=== PATIENT | male | born 1950 | race American Indian/Alaskan Native ===

== ENCOUNTER 2016-12-02 08:53 | Inpatient (IN) | payer BC, MEDICARE ==
--- NOTE | 2016-12-02 09:39 | ED PDOC ---
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 Pt states that he had some discussion brought up about dialysis but that he never went through with it, and he is unaware of his latest lab values. pt also states that he has never had attacks due to his sickle cell trait. pt was schedule for today's cath due to shortness of breath with exertion and weakness that he has been experiencing for 2 weeks. pt denies chest pain, abdominal pain, urinary changes/bowel changes, hematuria, blood in stools, headaches. PMD: Dr. Sumner Uro: Dr. Tucker (Eduin Hammonds) Past Medical History - Provider Review Nursing Documentation Reviewed: Yes - Cardiac Hx Cardiac Disorders: Yes Hx Angina: Yes Hx Hypertension: Yes - Pulmonary Hx Respiratory Disorders: No - Neurological Hx Neurological Disorder: No Hx Paralysis: No - HEENT Hx Cataracts: Yes - Renal Hx Renal Disorder: Yes Hx Dialysis: No Hx Renal Failure: Yes - Endocrine/Metabolic Hx Endocrine Disorders: Yes Hx Diabetes Mellitus Type 2: Yes - Hematological/Oncological Hx Blood Disorders: Yes Hx Anemia: Yes Hx Blood Transfusions: No Hx Sickle Cell Trait: Yes - Integumentary Hx Dermatological Disorder: No - Musculoskeletal/Rheumatological Hx Musculoskeletal Disorders: No - Gastrointestinal Hx Gastrointestinal Disorders: No - Genitourinary/Gynecological Hx Genitourinary Disorders: No - Psychiatric Hx Psychophysiologic Disorder: No Hx Emotional Abuse: No Hx Physical Abuse: No Hx Substance Use: No - Past Surgical History Past Surgical History: Non-Contributing - Surgical History Hx Eye Surgery: Yes Other/Comment: cataracts-both eyes - Anesthesia Hx Anesthesia: Yes Hx Anesthesia Reactions: No Hx Malignant Hyperthermia: No - Suicidal Assessment Feels Threatened In Home Enviroment: No <Eduin Hammonds - Last Filed: 12/02/16 10:43> Family/Social History - Physician Review Nursing Documentation Reviewed: Yes Family/Social History: No Known Family HX Smoking Status: Never Smoked Hx Alcohol Use: No Hx Substance Use: No <Eduin Hammonds - Last Filed: 12/02/16 10:43> Allergies/Home Meds <Eduin Hammonds - Last Filed: 12/02/16 10:43> <Azael Zavalao Felisa - Last Filed: 12/02/16 11:16> Allergies/Adverse Reactions: Allergies No Known Allergies Allergy (Verified 11/30/16 14:01) Home Medications: Home Meds Medication Instructions Recorded Confirmed Amlodipine Bes/Olmesartan Med 1 tab PO DAILY 11/30/16 12/02/16 [Prema 10 mg-40 mg] Sitagliptin Phos/Metformin HCl 1 tab PO DAILY 11/30/16 12/02/16 [Janumet 50-500 mg Tablet] Review of Systems - Physician Review All systems were reviewed & negative as marked: Yes - Review of Systems Constitutional: Fatigue. absent: Fevers Respiratory: SOB Cardiovascular: absent: Chest Pain, Palpitations, Orthopnea Gastrointestinal: absent: Abdominal Pain, Nausea, Vomiting <Eduin Hammonds - Last Filed: 12/02/16 10:43> Physical Exam Vital Signs Reviewed: Yes Appearance: Positive for: Well-Appearing Pain Distress: None Mental Status: Positive for: Alert and Oriented X 3 - Systems Exam Head: Present: Atraumatic, Normocephalic Pupils: Present: PERRL Extroacular Muscles: Present: EOMI Conjunctiva: Present: Other (pale) Mouth: Present: Moist Mucous Membranes Pharnyx: Present: Normal Neck: Present: Normal Range of Motion Respiratory/Chest: Present: Clear to Auscultation, Good Air Exchange. No: Wheezes, Rales, Rhonchi Cardiovascular: Present: Regular Rate and Rhythm, Normal S1, S2 Abdomen: Present: Normal Bowel Sounds. No: Tenderness, Distention Back: Present: Normal Inspection Upper Extremity: Present: Normal Inspection. No: Cyanosis Lower Extremity: Present: Normal Inspection, Edema (1+) Neurological: Present: CN II-XII Intact, Speech Normal Skin: Present: Warm, Dry Psychiatric: Present: Alert, Oriented x 3 <Eduin Hammonds - Last Filed: 12/02/16 10:43> Vital Signs Temp Pulse Resp BP Pulse Ox 12/02/16 11:11 153/69 H 12/02/16 09:03 98.1 F 75 16 181/93 H 100 Medical Decision Making - Critical Care Critical Care Minutes: 30 minutes <Eduin Hammonds - Last Filed: 12/02/16 10:43> <Nnamdi Zavala - Last Filed: 12/02/16 11:16> ED Course and Treatment: 12/02/16 09:48 Impression: 66yo M presenting with symptomatic anemia and CKD vs LYLE Plan: - Reassessment and disposition - EKG - Trop - BNP - UA - cross and match- adminster 2u pRBC - Kayexelate for high K Progress : -Consent for blood was obtained -Dr. Hancock was contacted regarding pt's CKD. suggests dialysis for the patient and tunneled catheter by Dr. Norman Vo. will see patient later. -The possibility of dialysis was discussed with patient, and the idea of a temporary tunneled catheter and a permanent AV fistula is understood. case will be discussed more in depth by specialists with patient. - Dr. Vo was contacted regarding tunneled catheter which will be done later today. 12/02/16 10:28 EKG shows NSR @ 75bpm. T wave abnormality but no peaking or ST segment or interval changes, as read by me 12/02/16 10:38 Creator : Natalie Lowry Dictator : Natalie Lowry Manager Of Photography : Print Binding Worker : Natalie Lowry Approver2 : Report Date : 12/02/2016 10:36:23 My Comment : HISTORY: sob COMPARISON: No prior. FINDINGS: LUNGS: No consolidation PLEURA: No significant pleural effusion identified, no pneumothorax apparent. CARDIOVASCULAR: Mild cardiomegaly. Central pulmonary venous congestion OSSEOUS STRUCTURES: No significant abnormalities. VISUALIZED UPPER ABDOMEN: Normal. OTHER FINDINGS: None. IMPRESSION: Mild cardiomegaly and central pulmonary venous congestion 12/02/16 10:[address] Dee who accepts the patient onto his service ( Eduin Hammonds) 12/02/16 10:10 Patient Seen With Resident: In agreement with resident note which contains more details about the patient. Patient was seen and evaluated with resident. Came up with plan and treatment together. Patient complaints of shortness of breathe on exertion, weakness, and lightheadedness. Ddx: Symptomatic Anemia, Acute renal failure on chronic renal failure Potassium treated with Kayexlate. Blood transfusion ordered. I discussed risks vs benefits with patient and he agreed to blood transfusion. Case discussed with Dr. Vo, whom recommends making sure patient has 2nd IV Line and to be taken for tunneled catheter. Dr. Hancock, webbing tacker, requests Dr. Vo for IR and she will take patient to dialysis pending her evaluation. Patient admitted under Dr. Fredrick Dee who agrees for telemetry. (Nnamdi Zavala) - Lab Interpretations Lab Results: Lab Results 12/02/16 09:47: Blood Type B POSITIVE, Antibody Screen Negative, Crossmatch See Detail, BBK History Checked Patient has bt 12/02/16 09:40: Retic Count 1.04 12/02/16 09:40: Iron 68, TIBC 264, % Saturation 26 12/02/16 09:40: Ferritin Pending, Lactate Dehydrogenase 703 H, Total Creatine Kinase 374 H, CK-MB (CK-2) 2.1, CK-MB (CK-2) % Cancelled, Troponin I 0.06, NT- Pro-B Natriuret Pep 6490 H - RAD Interpretation Radiology Orders: 12/02/16 09:31 CHEST PORTABLE [RAD] Stat 12/02/16 09:47 RENAL ARTERY DUPLEX COMPLETE [US] Urgent - Medication Orders Current Medication Orders: Amlodipine Besylate (Norvasc) 10 mg PO DAILY HARLEEN Last Admin: 12/02/16 11:11 Dose: 10 mg MAR Blood Pressure Document 12/02/16 11:11 RG (Rec: 12/02/16 11:11 [id number]) Blood Pressure Blood Pressure (100/60-150/90) 153/69 Atorvastatin Calcium (Lipitor) 80 mg PO DIN HARLEEN Insulin Human Regular (Humulin R Med) 0 units SC ACHS HARLEEN PRN Reason: Protocol Discontinued Medications Sodium Polystyrene Sulfonate (Kayexalate Susp) 30 gm PO STAT STA Stop: 12/02/16 10:10 Last Admin: 12/02/16 11:10 Dose: 30 gm Disposition/Present on Arrival - Present on Arrival History of DVT/PE: No History of Uncontrolled Diabetes: No Urinary Catheter: No History of Decub. Ulcer: No History Surgical Site Infection Following: None <Eduin Hammonds - Last Filed: 12/02/16 10:43> - Present on Arrival Any Indicators Present on Arrival: No - Disposition Have Diagnosis and Disposition been Completed?: Yes Disposition Time: 09:55 Patient Plan: Admission <Nnamdi Zavala - Last Filed: 12/02/16 11:16> - Disposition Diagnosis: Renal failure (ARF), acute on chronic, Symptomatic anemia, Hyperkalemia Condition: FAIR
[2016-12-02] MEDS ORDERED: Sod Polystyrene Sulf 15 gm/60 ml Susp PO STA (10:09)
[2016-12-02 10:19] LABS: RETIC% 1.04 % (0.5-1.5)
[2016-12-02 10:37] LABS: IRON 68 ug/dL (45-180)
--- NOTE | 2016-12-02 10:38 | RAD ---
HISTORY: sob COMPARISON: No prior. FINDINGS: LUNGS: No consolidation PLEURA: No significant pleural effusion identified, no pneumothorax apparent. CARDIOVASCULAR: Mild cardiomegaly. Central pulmonary venous congestion OSSEOUS STRUCTURES: No significant abnormalities. VISUALIZED UPPER ABDOMEN: Normal. OTHER FINDINGS: None. IMPRESSION: Mild cardiomegaly and central pulmonary venous congestion
[2016-12-02 10:41] LABS: TROPONIN I 0.06 ng/mL
[2016-12-02] MEDS ORDERED: Lidocaine 2% Inj (20ml) ONE (10:43)
[2016-12-02] MEDS ORDERED: Midazolam 2 MG/2 ML VIAL ONE ×2 (10:44→11:36)
--- NOTE | 2016-12-02 13:49 | US ---
PROCEDURE: Bilateral renal artery duplex ultrasound. CLINICAL HISTORY: Renal failure. Evaluate for ischemic nephropathy. . Evaluate for renovascular hypertension. PHYSICIAN(S): Norman Vo M.D. TECHNIQUE: Duplex sonography with color-flow Doppler was used to evaluate the visualized segments of the main renal arteries. The patient was evaluated in a fasting state. Imaging in a supine and decubitus position was performed. Limited evaluation of the arcuate waveforms and resistive indices were performed. FINDINGS: Visualization of the main renal arteries is very limited. The kidneys are normal in size, shape, and location. The renal parenchyma is somewhat echogenic with elevated resistive indices. The right kidney measures 10.2cm in length and the left kidney measures 10.3cm in length. No solid renal masses, abnormal calcifications, or hydronephrosis is seen. The main right renal artery is only visualized in segments from the aorta to the hilum.. The peak systolic velocity in the right main renal artery is 92 cm/sec. This is consistent with a 0 to 49% stenosis in the main right renal artery. The resistive index is elevated The main left renal artery is also only visualized in segments from the aorta to the hilum.. The peak systolic velocity in the main left renal artery is 64cm/sec. This corresponds to a 0 to 49% stenosis in the main left renal artery. The resistive indices are elevated. IMPRESSION: 1. The main renal arteries are not well visualized. 2. No sonographically significant stenosis is identified. 3. The kidneys are normal and symmetric in size. There are no solid renal masses, abnormal calcifications or hydronephrosis noted. Renal parenchyma is somewhat echogenic with elevated resistive indices.
[2016-12-02] MEDS ORDERED: Darbepoetin Alfa 100 mcg/ml Inj IVP ONE (14:16)
[2016-12-02] MEDS ORDERED: Iron Sucrose 100 mg/5 ml Inj IVP ONE (14:17)
[2016-12-02 15:04] LABS: BASO # 0.02 K/mm3 (0.0-2.0); BASO % 0.4 % (0.0-3.0); EOS # 0.1 (0.0-0.7); EOS % 2.4 % (1.5-5.0); GRAN # 3.14 (1.4-6.5); GRAN % 64.2 % (50.0-68.0); LYMPH # 1.1 (1.2-3.4); LYMPH % 22.2 % (22.0-35.0); MEAN CELL VOLUME 77.6 fl (80.0-105.0); MEAN CORPUSCULAR HEMOGLOBIN 25.7 pg (25.0-35.0); MEAN CORPUSCULAR HGB CONC 33.2 g/dl (31.0-37.0); MEAN PLATELET VOLUME 9.2 fl (7.0-11.0); MONO # 0.5 (0.1-0.6); MONO % 10.8 % (1.0-6.0); RED CELL DISTRIBUTION WIDTH 14.2 % (11.5-14.5); WHITE BLOOD COUNT 4.9 10^3/ul (4.5-11.0)
[2016-12-02 15:12] LABS: HEMATOCRIT 20.8 % (42.0-52.0)
[2016-12-02 15:13] LABS: ALB/GLOB RATIO 1.2 (1.1-1.8); BILIRUBIN,TOTAL 0.4 mg/dL (0.2-1.3); CALCIUM 8.3 mg/dL (8.4-10.5); MAGNESIUM 3.2 mg/dL (1.7-2.2); PHOSPHOROUS 6.9 mg/dL (2.5-4.5); POTASSIUM 5.1 mmol/L (3.6-5.0); TOTAL PROTEIN 6.5 g/dL (5.8-8.3); URIC ACID 7.8 mg/dL (3.5-8.5)
[2016-12-02] MEDS ORDERED: Iron Sucrose 100 mg/5 ml Inj ONE (15:30)
[2016-12-02] MEDS: Insulin Reg-MEDIUM-Coverage SC SCH ×3 (17:01→22:30)
[2016-12-02] MEDS: Oxycodone/Acetaminophen 5/325 mg Tab PO PRN (17:29)
--- NOTE | 2016-12-02 17:47 | VASCULAR ---
PROCEDURE: Ultrasound and fluoroscopic tunneled right IJ dialysis catheter. CLINICAL HISTORY: ESRD PHYSICIAN(S): Norman Vo M.D. TECHNIQUE: The relative risks and indications for the procedure were explained to the patient and informed written consent obtained. The patient was placed supine on the arteriography table and the right neck/chest was prepped and draped in the usual sterile fashion. 1% Xylocaine was used to anesthetize the skin and soft tissues at the puncture site. Conscious sedation and monitoring were provided throughout the procedure by a nurse. Under direct ultrasound guidance, the rightinternal jugular vein was punctured with a micropuncture set. A 0.035 Glidewire was advanced into the IVC. Sequential dilatation was performed with subsequent placement of a 28cm [place] II catheter with its tip in the right atrium. A retrograde tunnel below the right clavicle was performed. The catheter was trimmed and the hub attached. Both ports aspirate and inject easily. The catheter was secured and a dressing applied. The patient tolerated the procedure well. IMPRESSION: 1. Ultrasound and fluoroscopically placed right IJ tunneled dialysis catheter.
--- NOTE | 2016-12-02 18:09 | CON ---
DATE: 12/02/2016 HISTORY OF PRESENT ILLNESS: The patient is a 66-year-old male who was sent here from Dr. Dee's office because of ongoing dyspnea and chest pain. He was scheduled for cardiac catheterization. However, his preliminary labs revealed a hemoglobin of 6.9 as well as a creatinine of greater than 9. PAST MEDICAL HISTORY: Includes diabetes mellitus, hypertension, chronic renal disease as well as sickle cell trait. No previous cardiac history is noted. He denies chest pain at this time but admits to marked exertional shortness of breath and weakness. Because of this, he was transferred to the emergency room for continued evaluation and care. SOCIAL HISTORY: Denies smoking. REVIEW OF SYSTEMS: A 14-point review of systems was reviewed. His predominant symptoms are exertional dyspnea. PHYSICAL EXAMINATION: VITAL SIGNS: Blood pressure 181/93, heart rate in the 70s. NECK: Negative JVD. LUNGS: Without rales. HEART: S1 and S2 with 2/6 systolic ejection murmur. EXTREMITIES: Without edema. EKG shows nonspecific ST-T changes. Hemoglobin is 6.8. Chemistries: BUN and creatinine is 90 and 11.9. IMPRESSION: 1. End-stage renal disease. 2. Dyspnea. 3. Marked anemia. 4. Diabetes mellitus. 5. Hypertension. 6. History of sickle cell trait. PLAN: Given these findings, we will obtain an echocardiogram to evaluate his LV function. He will require packed red blood cells. Renal consultation have been ordered. Norman Marie MD
--- NOTE | 2016-12-02 19:04 | HP ---
HISTORY OF PRESENT ILLNESS: The patient is a 66 year old man with past medical history of hypertension, hyperlipidemia, non-insulin diabetes mellitus, CKD stage IV-V and anemia of chronic disease who presented to [facility] ED for evaluation of a several day history of progressively worsening dyspnea with exertion and fatigue. The patient was seen in his PMD's office 3 days ago for complaint of substernal chest discomfort (worse with exertion) associated with increased exercise intolerance and dyspnea. At that time, arrangement were made with Dr. Marie for further evaluation with cardiac catheterization. Routine lab studies obtained prior to his catheterization demonstrated a hemoglobin of 6.8 and a creatinine of 11. Given his renal dysfunction he was advised that he would be unlikely to tolerate an IV contrast load during the planned cardiac catheterization and was advised to go to the ED for evaluation and management of severe anemia, metabolic acidosis and renal failure. Upon arrival to the ED he was noted to be afebrile and hemodynamically stable. He was evaluated by Dr. Norman Vo of IR and underwent placement of dialysis access catheter. He was then admitted to the telemetry rhodes for continued management. PAST MEDICAL HISTORY: As per HPI, also sickle cell trait, BPH. PAST SURGICAL HISTORY: None. ALLERGIES: NKDA. MEDICATIONS: Janumet 50/500 mg 1 tablet p.o. daily, Amlodipine/Olmesartan 10/ 40 mg one tablet daily, Lipitor 80 mg p.o. daily and Ambien 5 mg p.o. at bedtime. FAMILY HISTORY: Noncontributory. SOCIAL HISTORY: The patient denies any toxic habits. He has a remote smoking history. REVIEW OF SYSTEMS: A 14-point review of systems is negative except as per HPI. PHYSICAL EXAMINATION: VITAL SIGNS: Temperature 98.1, pulse 75, blood pressure 153/69, respiratory rate 16, oxygen saturation 100% on room air. GENERAL: In no apparent distress. HEENT: Normocephalic, atraumatic. PERRL. EOMI. No scleral icterus. Mild conjunctival pallor is noted. NECK: No JVD. No bruits. LUNGS: Decreased breath sounds at the bases. CARDIOVASCULAR: Regular rate and rhythm. Normal S1 and S2. ABDOMEN: Normoactive bowel sounds. Soft, nontender, nondistended. EXTREMITIES: Trace lower extremity edema bilaterally. NEUROLOGIC: Awake, alert and oriented x3. No focal motor deficit. LABORATORY DATA: Laboratory studies are pending. IMAGING STUDIES: 1. Chest x-ray demonstrates mild cardiomegaly with central pulmonary venous congestion. 2. Renal artery ultrasound is pending. ASSESSMENT: The patient is a 66 year old man with past medical history of hypertension, NIDDM, hyperlipidemia, CKD Stage IV-V, anemia of chronic disease and sickle cell trait who presented for evaluation of a several day history of worsening exertional dyspnea and increasing fatigability and was subsequently admitted to the telemetry rhodes for continued workup and management of ESRD and severe, symptomatic anemia. PLAN: 1. Anemia of chronic disease, symptomatic. Laboratory studies obtained prior to cardiac catheterization demonstrated hemoglobin of 6. Of note, the patient had outpatient laboratory studies on 11/12/2016 that demonstrated a hemoglobin of 7.3 (baseline 9-10 as per outpatient labs dating back to 05/2015). The patient has been typed and cross matched and scheduled for transfusion of 3 units of PRBCs. We will obtain iron studies, reticulocyte count and EPO level. We will also check stool for occult blood. Continue to monitor CBC daily. 2. ESRD. The patient's was referred to Dr. Tucker (purchasing coordinator) in 08/2015 when outpatient labs demonstrated a BUN 56, Cr 4.8 but reportedly has not maintained follow-up since the possibility for eventual dialysis was raised. We will consult Dr. Beavers of Nephrology. We will order a renal artery ultrasound. We will check vitamin D level and intact PTH as well as uric acid level. Dr. Norman Vo has been consulted and the patient is s/p placement of dialysis catheter. 3. Angina. The patient was scheduled for cardiac catheterization with Dr. Marie however due to his underlying renal dysfunction, IV contrast was contraindicated. Based on the patient's labs it is likely that his symptoms may be secondary to symptomatic anemia. Dr. Marie has been consulted for further evaluation and recommendations. 4. CHF. Laboratory studies on admission demonstrate an elevated BNP of 6490 and CXR demonstrates pulmonary venous congestion. A TTE has been ordered to assess LV function and evaluate for wall motion abnormalities. 5. Hypertension. Blood pressure controlled. Continue with Norvasc 10 mg p.o. daily. We will hold ACEi and ARB's given the patient's renal dysfunction while his renal workup is pending. 6. Hyperlipidemia. Continue with Lipitor 80 mg p.o. daily. 7. NIDDM, well controlled with most recent A1c of 5.9. Continue with medium dose ISS and monitoring finger sticks q. a.c. and at bedtime. 8. BPH. 9. Metabolic acidosis. The patient will be started on HD and may require placement on sodium bicarbonate. Will monitor daily CMP. 10. Prophylaxis. GI prophylaxis is not indicated as patient is eating. DVT prophylaxis is not indicated, as patient is ambulatory. CODE STATUS: Full code. Fredrick Dee MD MTDD
[2016-12-02 20:14] VITALS: BMI 27.3
--- NOTE | 2016-12-02 21:03 | CON ---
DATE: 12/02/2016 REASON FOR CONSULTATION: Advanced chronic kidney disease, hyperkalemia, shortness of breath, severe anemia. HISTORY OF PRESENTING ILLNESS: A 66-year-old male previously unknown to me, was initially admitted to same-day surgery for cardiac cath because of symptoms of dyspnea on exertion, some chest tightness. Pre-procedure workup showed elevated BUN of 90, creatinine of 11.2. Potassium of 5.4. Hemoglobin of 7. On questioning the patient reports that, he follows up with another manager language. He was advised to start renal replacement therapy 1 year ago. He did not go back for his follow-up visits. He gives a history of NIDDM, hypertension for many years. He also has hyperlipidemia. He denies any knowledge of any CAD. Procedure was canceled because of advanced chronic kidney disease. Currently, he reports dyspnea on exertion, some chest pressure. He denies any headaches, dizziness. He denies any nausea, vomiting. He denies any abdominal pain. He denies any changes in his urine output. PAST MEDICAL AND SURGICAL HISTORY: NIDDM for 20 years, hypertension for 10+ years, hyperlipidemia, chronic anemia, sickle cell trait. FAMILY HISTORY: Noncontributory. SOCIAL HISTORY: No smoking, no alcohol use, no IV drug abuse. ALLERGIES: NO KNOWN DRUG ALLERGIES. MEDICATIONS AT HOME: Prema 1040, Janumet 50/500. REVIEW OF SYSTEMS: All systems are reviewed, pertinent positives as mentioned in the history of presenting illness, rest unremarkable. PHYSICAL EXAMINATION: GENERAL EXAMINATION: Thinly built, elderly male lying in bed. VITAL SIGNS: Blood pressure 181/93, heart rate 84, respiratory rate 18, temperature 98.2. HEENT: Normocephalic, atraumatic, positive pallor. NECK: Supple, no JVD. LUNGS: Bilateral equal air entry, bilateral equal expansion, no rales. CARDIAC: S1 and S2, regular rate and rhythm, no murmur, no rub. ABDOMEN: Soft, nondistended, nontender, bowel sounds present. EXTREMITIES: 1+ pitting edema of the lower extremities. INTAKE AND OUTPUT: Not charted. LABORATORY DATA: WBC 5.1, hemoglobin 6.8, hematocrit 20.9, platelets 173. Sodium 144, potassium 5.4, chloride 112, CO2 17, BUN 90, creatinine 11.9, glucose 137, calcium 8.5, iron 68, iron saturation 26%, ferritin pending. Cholesterol 239, LDL 108, INR 0.9. ASSESSMENT: 1. Advanced chronic kidney disease, stage V. 2. Hyperkalemia. 3. Anion gap metabolic acidosis. 4. Non-insulin dependent diabetes mellitus. 5. Severe hypertension. 6. Severe anemia. 7. Suspect secondary hyperparathyroidism. PLAN: 1. Discontinue Janumet, the patient should not be on metformin with advanced chronic kidney disease. 2. Okay to continue Prema. 3. Urgent dialysis. 4. Aranesp and Venofer on dialysis. 5. Check phosphorus and intact PTH. 6. Will need chronic dialysis. 7. Discussed all options of renal replacement therapy with the patient at length at bedside. Arielle Hancock MD
--- NOTE | 2016-12-02 21:28 | CARD ---
APPROVED REPORT EKG Measurement Heart [id number] <Conclusion> Normal sinus rhythm T wave abnormality, consider lateral ischemia Abnormal ECG
[2016-12-03 05:51] LABS: BASO # 0.02 K/mm3 (0.0-2.0); BASO % 0.4 % (0.0-3.0); EOS # 0.1 (0.0-0.7); EOS % 1.4 % (1.5-5.0); GRAN # 3.41 (1.4-6.5); GRAN % 68.4 % (50.0-68.0); LYMPH # 1.1 (1.2-3.4); LYMPH % 21.2 % (22.0-35.0); MEAN CELL VOLUME 78.1 fl (80.0-105.0); MEAN CORPUSCULAR HEMOGLOBIN 25.8 pg (25.0-35.0); MONO # 0.4 (0.1-0.6); MONO % 8.6 % (1.0-6.0)
[2016-12-03 06:20] LABS: ALB/GLOB RATIO 1.1 (1.1-1.8); BILIRUBIN,TOTAL 0.4 mg/dL (0.2-1.3); CALCIUM 7.5 mg/dL (8.4-10.5); POTASSIUM 4.3 mmol/L (3.6-5.0)
[2016-12-03] MEDS: Insulin Reg-MEDIUM-Coverage SC SCH ×4 (07:30→22:49)
--- NOTE | 2016-12-03 10:18 | PN ---
DATE: 12/03/2016 SUBJECTIVE: The patient is asymptomatic. OBJECTIVE: VITAL SIGNS: Blood pressure 173/87, heart rate in the 70s. NECK: Negative JVD. LUNGS: Without rales. HEART: S1, S2. EXTREMITIES: Without edema. LABORATORY DATA: The potassium is 4.3, hemoglobin is 6.6. IMPRESSION: 1. End-stage renal disease. 2. Marked anemia. 3. High probability for coronary artery disease. 4. Diabetes mellitus. 5. Hypertension. PLAN: Given these findings, the patient is for dialysis today. The patient should receive packed red blood cells today during dialysis. Orders have been put in. Norman Marie MD
--- NOTE | 2016-12-03 11:52 | PN ---
SUBJECTIVE: The patient was seen and examined at bedside on the dialysis rhodes. No acute events overnight. He remains afebrile and hemodynamically stable. The patient is s/p placement of dialysis access catheter with Dr. Norman Vo and he has been evaluated by Dr. Hancock of Nephrology and started on hemodialysis. This morning the patient states he feels okay and has many questions regarding dialysis, but otherwise offers no complaints. PHYSICAL EXAMINATION: VITAL SIGNS: Temperature 99.4, pulse 74, blood pressure 173/87, respiratory rate 19, and oxygen saturation 95% on room air. GENERAL: No apparent distress. HEENT: PERRL. EOMI. No scleral icterus. Mild conjunctival pallor is noted. NECK: No JVD. No bruits. LUNGS: Clear to auscultation. CARDIOVASCULAR: Regular rate and rhythm. Normal S1 and S2. ABDOMEN: Normoactive bowel sounds. Soft, nontender, and nondistended. EXTREMITIES: Trace lower extremity edema bilaterally. NEUROLOGIC: Awake, alert and oriented x3. No focal motor deficits. LABORATORY DATA: WBC 5 with 68% neutrophils, hemoglobin 6.6, hematocrit 20, and platelets 160. MCV 78. Sodium 143, potassium 4.3, chloride 107, bicarbonate 26, BUN 61, creatinine 8.9 , and glucose 144. IMAGING STUDIES: Renal artery ultrasound demonstrates no sonographically significant stenosis, although is a poor study with suboptimal visualization. ASSESSMENT: The patient is a 66 year old man with past medical history of hypertension, NIDDM, hyperlipidemia, CKD Stage IV-V, anemia of chronic disease and sickle cell trait who presented for evaluation of worsening exertional dyspnea and increasing fatigability and who was admitted to the telemetry rhodes for continued workup and management of ESRD and severe symptomatic anemia. PLAN: 1. Anemia of chronic disease, symptomatic. The patient was scheduled for transfusion upon admission however given the need to place dialysis access catheter to initiate hemodialysis, the patient never received his blood transfusions. We will transfuse 2 units of PRBCs. Continue with Venofer as per Dr. Hancock. Continue to monitor CBC daily. 2. ESRD. Input from Dr Hancock noted and greatly appreciated. The patient has been started on hemodialysis and laboratory studies demonstrate resolution of his multiple electrolyte derangements. 3. Angina. Input from Dr. Marie noted and appreciated. A TTE is ordered and pending. We will reassess the patient's symptoms once he has been transfused, as this may be contributing to his exertional dyspnea and chest discomfort. 4. Questionable CHF. As above input from Dr. Marie noted and appreciated. We will await results of the TTE to assess LV function and evaluate for wall motion abnormalities. 5. Hypertension. Blood pressure is slightly elevated. Continue with Norvasc 10 mg p.o. daily and clonidine 0.1 mg p.o. q.8 hours. We will continue to monitor hemodynamics over the following 24 hours and adjust antihypertensives as needed. 6. Hyperlipidemia. Continue with Lipitor 80 mg p.o. daily. 7. NIDDM, well controlled. Laboratory studies on admission demonstrate a hemoglobin of 6.3. Continue with medium dose ISS and monitoring finger sticks before meals and at bedtime. 8. Metabolic acidosis, resolved. Input from Dr. Hancock noted and appreciated. Continue with renal replacement therapy. 9. BPH. 10. Prophylaxis. GI prophylaxis not indicated as the patient is eating. DVT prophylaxis not indicated as the patient is ambulatory. CODE STATUS: Full code. Fredrick Dee MD S[facility]INO
[2016-12-04 06:07] LABS: BASO # 0.02 K/mm3 (0.0-2.0); BASO % 0.3 % (0.0-3.0); EOS # 0.1 (0.0-0.7); EOS % 1.8 % (1.5-5.0); GRAN # 4.89 (1.4-6.5); GRAN % 67.6 % (50.0-68.0); HEMATOCRIT 27.1 % (42.0-52.0); LYMPH # 1.3 (1.2-3.4); LYMPH % 17.4 % (22.0-35.0); MEAN CELL VOLUME 79.9 fl (80.0-105.0); MEAN CORPUSCULAR HGB CONC 32.5 g/dl (31.0-37.0); MEAN PLATELET VOLUME 9.7 fl (7.0-11.0); MONO # 0.9 (0.1-0.6); MONO % 12.9 % (1.0-6.0); RED CELL DISTRIBUTION WIDTH 14.4 % (11.5-14.5); WHITE BLOOD COUNT 7.2 10^3/ul (4.5-11.0)
[2016-12-04 06:18] LABS: ALB/GLOB RATIO 1.2 (1.1-1.8); BILIRUBIN,TOTAL 0.8 mg/dL (0.2-1.3); CALCIUM 7.5 mg/dL (8.4-10.5); POTASSIUM 4.2 mmol/L (3.6-5.0); TOTAL PROTEIN 6.2 g/dL (5.8-8.3)
--- NOTE | 2016-12-04 06:45 | PN ---
DATE: 12/03/2016 SUBJECTIVE: The patient is seen lying in bed. He is awake. He is alert. He is comfortable. He denies any pain. He denies any shortness of breath. OBJECTIVE: GENERAL: Elderly male lying in bed. VITAL SIGNS: Blood pressure 154/93, heart rate is 58, respiratory rate 18, and temperature 98.7. HEENT: Normocephalic, atraumatic. NECK: Supple. No JVD. LUNGS: Bilateral equal air entry, bilateral equal expansion, no rales. CARDIAC: S1 and S2, regular rate and rhythm, no murmur, no rub. ABDOMEN: Obese, soft, nontender, bowel sounds present. EXTREMITIES: No lower extremity edema. INTAKE AND OUTPUT: Not charted. LABORATORY DATA: WBC 5.0, hemoglobin 6.6, hematocrit 20, and platelets 160. Sodium 143, potassium 5.3, chloride 107, CO2 of 26, BUN 61, creatinine 8.9, and glucose 144. A1c 6.3. Calcium 7.5. Iron saturation 26, iron 68, ferritin 89.8. CURRENT MEDICATIONS: Catapres 0.1 q. 8 p.r.n., insulin, , Lipitor q.d., amlodipine 10, Rocaltrol, Tylenol, Zofran. ASSESSMENT: 1. Advanced chronic kidney disease, end-stage renal disease. 2. Severe anemia. 3. Non-insulin dependant diabetes mellitus, hypertension. 4. Secondary hyperparathyroidism. 5. Hyperphosphatemia. 6. Demand ischemia? PLAN: 1. The patient received second dialysis treatment early this morning. 2. Two units of blood had been ordered by PMD. 3. The patient is already receiving Venofer on dialysis. 4. Continue Aranesp with dialysis. 5. We will dialyze again tomorrow. 6. The patient and family to be deciding regarding outpatient dialysis . 7. Long discussion with the patient, , and daughter regarding different options for chronic renal replacement therapy. More than 35 minutes was spent in discussing all the options with the patient and the family. Past medical and surgical history, family history, and social history are all reviewed and unchanged. Arielle Hancock MD
[2016-12-04] MEDS: Insulin Reg-MEDIUM-Coverage SC SCH ×4 (07:56→22:30)
--- NOTE | 2016-12-04 14:05 | PN ---
DATE: LOCATION: The patient is currently in room 267, bed 1. SUBJECTIVE: He has no specific complaints. They have been no acute events overnight. PHYSICAL EXAMINATION: VITAL SIGNS: Temperature 98.7, pulse rate of 68, blood pressure 167/82, respiratory rate of 20 with an O2 saturation of 98% on room air. HEENT: PERRLA. EOMI. There is no icterus present. NECK: Supple with full range of motion. No bruits are appreciated. LUNGS: Clear to auscultation and percussion bilaterally. HEART: Regular rate and rhythm. No murmurs, rubs or gallops. ABDOMEN: Soft, nontender. Bowel sounds are normoactive. There is an access site for hemodialysis in the right upper chest. EXTREMITIES: Show no deformities or edema. NEUROLOGIC: There are no focal motor deficits. LABORATORY DATA: At this time show WBC 7.2, hemoglobin and hematocrit are 8.8 and 27.1. Chemistry, BUN is down to 39, creatinine is down to 6.5, it was 12.1 at one point. Random glucose is 151. Alkaline phosphatase of 172. Total protein, albumin and globulin are all normal. Hepatitis labs are normal. ASSESSMENT AND PLAN: At this point, we will continue to monitor hemoglobin and hematocrit. We will continue dialysis and schedule the patient for an arteriovenous shunt. Parth Dee MD
--- NOTE | 2016-12-04 14:41 | CARD ---
APPROVED REPORT EXAM: Two-dimensional and M-mode echocardiogram with Doppler and color Doppler. INDICATION Dyspnea 2D DIMENSIONS Left Atrium (2D)6.3 (1.6-4.0cm)IVSd1.9 (0.7-1.1cm) LVDd5.0 (3.9-5.9cm)PWd1.6 (0.7-1.1cm) LVDs3.2 (2.5-4.0cm)FS (%) 35.6 % LVEF (%)64.7 (>50%) M-Mode DIMENSIONS Aortic Root4.00 (2.2-3.7cm)Aortic Cusp Exc.1.70 (1.5-2.0cm) Aortic Valve AoV Peak Lxntkngu394.0cm/Suki Peak GR.19mmHg Mitral Valve MV E Asvawvfa71.9cm/sMV A Xmkwzptr082.0cm/sE/A ratio0.6 TDI Lateral E' Peak V5.26cm/sMedial E' Peak V6.14cm/sE/Lateral E'17.5 E/Medial E'15.0 Pulmonary Valve PV Peak Otadpqyp454.0cm/sPV Peak Grad.4mmHg Tricuspid Valve TR Peak Luksaudp027mf/sRAP [id number] Peak Gr.21mmHg [id number] LEFT VENTRICLE There is mild concentric left ventricular hypertrophy. The left ventricular function is normal. The left ventricular ejection fraction is within the normal range. RIGHT VENTRICLE The right ventricle is normal size. ATRIA The left atrium is mildly dilated. The right atrium size is normal. AORTIC VALVE The aortic valve is thickened but opens well. MITRAL VALVE The mitral valve is thickened but opens well. Mitral annular calcification is mild. Mitral regurgitation is mild. TRICUSPID VALVE The tricuspid valve leaflets are thickened , but open well. There is mild tricuspid regurgitation. There is no pulmonary hypertension. PULMONIC VALVE The pulmonic valve is mildly thickened. PERICARDIAL EFFUSION There is no pericardial effusion. <Conclusion> LVH with good LV function Dilated LA Mild MR Mild TR No pulmonary hypertension
[2016-12-04] MEDS ORDERED: Doxercalciferol 4 mcg/2 ml Inj IV ONE (14:44)
[2016-12-04] MEDS ORDERED: Ergocalciferol 50,000 Intl Units Cap PO SCH (14:45)
--- NOTE | 2016-12-04 15:16 | PN ---
DATE: 12/04/2016 CARDIOLOGY FOLLOWUP SUBJECTIVE: The patient is much more comfortable after dialysis. PHYSICAL EXAMINATION: VITAL SIGNS: Blood pressure is 148/93, heart rate in the 60s. NECK: Negative JVD. LUNGS: Without rales. HEART: S1 and S2. EXTREMITIES: Without edema. LABORATORY DATA: Hemoglobin is 8.8. Chemistries: BUN and creatinine 39 and 6.5 with a potassium of 4.2. IMPRESSION: 1. End-stage renal disease. 2. Currently being treated with dialysis. 3. Abnormal stress test with high probability for coronary artery disease. 4. Diabetes mellitus. 5. Hypertension. PLAN: Given these findings, now that the patient is on dialysis and his hemoglobin remained stable, we will schedule the patient for cardiac catheterization on Wednesday. Norman Marie MD
[2016-12-05 07:41] LABS: BASO # 0.02 K/mm3 (0.0-2.0); BASO % 0.3 % (0.0-3.0); EOS # 0.1 (0.0-0.7); EOS % 1.1 % (1.5-5.0); GRAN % 68.3 % (50.0-68.0); HEMATOCRIT 30.7 % (42.0-52.0); LYMPH # 1.3 (1.2-3.4); LYMPH % 17.9 % (22.0-35.0); MEAN CELL VOLUME 82.1 fl (80.0-105.0); MEAN CORPUSCULAR HEMOGLOBIN 26.2 pg (25.0-35.0); MEAN CORPUSCULAR HGB CONC 31.9 g/dl (31.0-37.0); MEAN PLATELET VOLUME 9.7 fl (7.0-11.0); MONO # 0.9 (0.1-0.6); MONO % 12.4 % (1.0-6.0); RED CELL DISTRIBUTION WIDTH 14.2 % (11.5-14.5); WHITE BLOOD COUNT 7.3 10^3/ul (4.5-11.0)
[2016-12-05 07:57] LABS: ALB/GLOB RATIO 1.1 (1.1-1.8); BILIRUBIN,TOTAL 0.7 mg/dL (0.2-1.3); CALCIUM 8.4 mg/dL (8.4-10.5); POTASSIUM 3.9 mmol/L (3.6-5.0); TOTAL PROTEIN 6.8 g/dL (5.8-8.3)
[2016-12-05] MEDS: Insulin Reg-MEDIUM-Coverage SC SCH ×4 (08:09→22:32)
[2016-12-05] MEDS: Oxycodone/Acetaminophen 5/325 mg Tab PO PRN (11:16)
--- NOTE | 2016-12-05 11:29 | PN ---
SUBJECTIVE: The patient was seen and examined at the bedside on the telemetry rhodes. No acute events overnight. He remains afebrile and hemodynamically stable. The patient is tolerating his hemodialysis with no issues. Overall, he states he feels okay and offers no complaints. OBJECTIVE: VITAL SIGNS: Temperature is 98.1, pulse is 79, blood pressure is 159/94, respiratory rate is 18, and oxygen saturation is 98% on room air. GENERAL: No apparent distress. HEENT: PERRL. EOMI. No scleral icterus. Mild conjunctival pallor is noted. NECK: No JVD. LUNGS: Clear to auscultation. CARDIOVASCULAR: Regular rate and rhythm. Normal S1 and S2. ABDOMEN: Normoactive bowel sounds. Soft, nontender, and nondistended. EXTREMITIES: No edema. NEUROLOGIC: Awake, alert, and oriented x3. No focal motor deficits. LABORATORY DATA: WBC of 7.3 with 68% neutrophils, hemoglobin of 9.8, hematocrit of 30, and platelets of 165. Sodium of 141, potassium of 3.9, chloride of 100, bicarbonate of 33, BUN of 24, creatinine of 5.3, and glucose of 136. ASSESSMENT: The patient is a 66 year old man with past medical history of hypertension, NIDDM, hyperlipidemia, ESRD, anemia of chronic disease and sickle cell trait who presented for evaluation of worsening exertional dyspnea and increasing fatigability and who was admitted to telemetry rhodes for continued workup and management of ESRD, initiation of hemodialysis and treatment of severe symptomatic anemia. PLAN: 1. Anemia of chronic disease, symptomatic. The patient is s/p transfusion of 2 units PRBCs with improvement in hemoglobin to the patient's baseline. Continue with IV iron. Continue to monitor CBC daily. 2. ESRD. Input from Dr. Beavers noted and greatly appreciated. Continue HD. Surgery eval pending for placement of AV fistula. 3. Angina. Input from Dr. Marie noted and the patient is scheduled for cardiac catheterization on Wednesday (12/07/2016). 4. Hypertension. Continue with Norvasc 10 mg p.o. daily and Clonidine 0.1 mg p.o. q. 8 hours. 5. Hyperlipidemia. Continue with Lipitor 80 mg p.o. daily. 6. NIDDM, well controlled with hemoglobin A1c of 6.3. Continue medium dose ISS and monitoring fingerstick before meals and at bedtime. 7. Metabolic acidosis, resolved. 8. BPH. 9. Prophylaxis. GI prophylaxis not indicated as the patient is eating. DVT prophylaxis not indicated as the patient is ambulatory. CODE STATUS: Full code. Fredrick Dee MD MTDD
--- NOTE | 2016-12-05 12:55 | PN ---
SUBJECTIVE: The patient is currently seen on telemetry, he is entirely comfortable. He has had 2 dialysis treatments and feels better. He has no chest pain. He has no shortness of breath. He has no uremic symptoms. He is scheduled for his next dialysis on 12/07/2016. MEDICATIONS: Medication list reviewed. The patient is currently on aspirin, clonidine, vitamin D, insulin sliding scale, Lipitor, Norvasc, Percocet, Tylenol p.r.n. and Zofran p.r.n. OBJECTIVE: INTAKE AND OUTPUT: Intake 1630, output 400+ dialysis. VITAL SIGNS: Blood pressure 169/94. Temperature 98.1. Respiratory rate is 18 with a pulse of 72. HEENT EXAM: Shows him to be normocephalic and atraumatic. Conjunctivae are pale. Sclerae nonicteric. NECK: Supple. No neck vein distention. CHEST: Clear to auscultation and percussion. No rales. No rhonchi. No wheezing. CARDIOVASCULAR: Normal S1 and S2. No S3. No S4. MR/TR. ABDOMEN: Soft. Bowel sounds normal. No rebound. No guarding. No masses. EXTREMITIES: Show no lower extremity cyanosis, clubbing or edema. Positive right chest wall PermCath for dialysis. NEUROLOGIC: No asterixis. LABORATORY DATA AND IMAGING: CBC: White blood cell count 7.3. Hemoglobin improved at 9.8. He is status post 2 units of packed red blood cells. Platelet count is 165,000. Chemistries showed normal electrolytes. BUN is 24 with a creatinine of 5.3, down from a BUN of 89 on admission and a creatinine of 12.1 on admission. Other serologies are negative. ASSESSMENT: 1. End-stage renal disease. The patient will continue on hemodialysis. His next treatment will be on 12/07/2016. As per cardiology note, the patient is going for a cardiac catheterization because of his abnormal stress test. This should precede his dialysis treatment to remove the contrast material. 2. History of severe anemia. The patient is status post transfusion of 2 units of packed red blood cells. The patient will continue on Aranesp therapy per protocol. Iron saturations were 26%. 3. History of lnc-trqyxvz-vekajxhfi diabetes mellitus and hypertension. Blood pressure control remains suboptimal on present medical therapy. The patient will continue clonidine on a p.r.n. basis. He is currently on Norvasc 10 mg a day. With the initiation of dialysis, the patient can be started on an angiotensin receptor kelvin. The patient has never had significant hyperkalemia. 4. History of secondary hyperparathyroidism. The patient will continue binder therapy and a renal diet. I will start the patient on PhosLo 667 mg one a day along with Nephro-Nisha. 5. Possible coronary artery disease. The patient is scheduled for a cardiac catheterization on Wednesday, and this will likely be followed by dialysis. PLAN: 1. Next hemodialysis will be on Wednesday, this was discussed with renal staff. 2. Maximize Aranesp and continue Venofer. 3. The patient states that he would like to dialyze in the [facility], in [place], [place]. He states this is the easiest unit for him to get to from where he lives and where he works. 4. The patient will ultimately need a vascular access creation. Post stabilization of his cardiac issue, perhaps evaluation by vascular surgery to set up appointments for placement of a vascular access. Uri Beavers MD
[2016-12-05] MEDS ORDERED: Oxycodone/Acetaminophen 5/325 mg Tab PO PRN (22:33)
[2016-12-06 07:42] LABS: ALB/GLOB RATIO 1.2 (1.1-1.8); BILIRUBIN,TOTAL 0.7 mg/dL (0.2-1.3); CALCIUM 8.1 mg/dL (8.4-10.5); POTASSIUM 3.7 mmol/L (3.6-5.0); TOTAL PROTEIN 6.3 g/dL (5.8-8.3)
[2016-12-06 07:44] LABS: BASO # 0.04 K/mm3 (0.0-2.0); BASO % 0.6 % (0.0-3.0); EOS # 0.2 (0.0-0.7); EOS % 2.3 % (1.5-5.0); GRAN # 3.98 (1.4-6.5); GRAN % 62.2 % (50.0-68.0); HEMATOCRIT 28.7 % (42.0-52.0); LYMPH % 14.8 % (22.0-35.0); MEAN CELL VOLUME 82.5 fl (80.0-105.0); MEAN CORPUSCULAR HEMOGLOBIN 26.4 pg (25.0-35.0); MEAN CORPUSCULAR HGB CONC 32.1 g/dl (31.0-37.0); MEAN PLATELET VOLUME 9.3 fl (7.0-11.0); MONO # 1.3 (0.1-0.6); MONO % 20.1 % (1.0-6.0); PLATELET COUNT 167 10^3/uL (120.0-450.0); RED CELL DISTRIBUTION WIDTH 14.1 % (11.5-14.5); WHITE BLOOD COUNT 6.4 10^3/ul (4.5-11.0)
[2016-12-06 08:34] LABS: ANISOCYTOSIS SLIGHT; EOSINOPHIL 2 % (0.0-3.0); NEUTROPHIL 59 % (50.0-70.0); PLATELET ESTIMATE NORMAL (NORMAL); POLYCHROMASIA SLIGHT
[2016-12-06] MEDS: Insulin Reg-MEDIUM-Coverage SC SCH ×4 (08:38→22:08)
[2016-12-06] MEDS: Multivitamin Vitamin B Complex (Nephro-Vite) Tab PO SCH (08:39)
--- NOTE | 2016-12-06 15:07 | PN ---
SUBJECTIVE: The patient is currently seen on telemetry, he is entirely comfortable. No uremic symptoms. He is lying in bed. He states that he might be having a cardiac catheterization tomorrow if that is the case, then he will receive dialysis post cardiac catheterization. I did discuss with the patient the need to meet a vascular surgeon during this present admission to have plans setup for an AV fistula creation. The patient again is interested in going to the [facility] in [place] which is close to where he works and lives. MEDICATIONS: Medication list reviewed. The patient is currently on aspirin, clonidine, losartan, ergocalciferol, insulin, Lipitor, Nephro-Nisha, Norvasc, PhosLo, Tylenol and Zofran. OBJECTIVE: INTAKE/OUTPUT: 420 and 600 out. VITAL SIGNS: Blood pressure is ranging from 166 systolic, diastolics ranging from 80-105. Heart rate is 77, temperature is 98.1, respiratory rate is 20. Oxygen saturation is 100%. HEENT: Shows him to be normocephalic, atraumatic. Conjunctivae pale. Sclerae nonicteric. NECK: Supple. No neck vein distention. CHEST: Clear to auscultation and percussion. No rales or rhonchi. No wheezing. He does have a right chest wall PermCath. CARDIOVASCULAR: Shows a regular rate and rhythm with no S3, no S4. MR/TR. ABDOMEN: Soft. Bowel sounds are normal. No rebound. No guarding. No masses. EXTREMITIES: Show no lower extremity cyanosis, clubbing or edema. NEUROLOGICAL: Shows no asterixis. No focal deficits. LABORATORY DATA AND IMAGING STUDIES: CBC today white blood cell count 6.4, hemoglobin 9.2, platelet count of 167,000. Chemistries today showed normal electrolytes. Potassium is 3.7, BUN 37 with a creatinine of 7.0. Glucose is 139. Calcium is 8.1. Last phosphorus was 6.9. This will be repeated with dialysis tomorrow. Liver enzymes are normal. Albumin is 3.4. ASSESSMENT: 1. End-stage renal disease. The patient will continue Wednesday, Wednesday and Wednesday dialysis. I would like the patient to meet a vascular surgeon in the hospital prior to him being discharged home so that arrangements can be made for placement of an AV fistula. If okay with Dr. Dee, will ask Dr. Morales, to evaluate the patient for AV fistula creation. 2. History of anemia. The patient is status post transfusion 2 units of packed red blood cells, we will continue Aranesp per protocol. Iron saturations were acceptable at 26%. 3. History of noninsulin-dependent diabetes mellitus and hypertension, blood pressure control remains suboptimal, the patient had been started on angiotensin receptor kelvin therapy by me. He continues on calcium channel kelvin therapy. With continued dialysis and lowering of his intravascular volume. I expect his blood pressure to normalize. In all likelihood, the patient will not require blood pressure medication on dialysis days. 4. History of secondary hyperparathyroidism. The patient will continue binder therapy and a renal diet. I expect his phosphorus level to fall to less than 5.5. 5. History of possible coronary artery disease. It is unclear to the staff whether or not the patient is going for a cardiac catheterization tomorrow with Dr. Marie. If he does do the cardiac catheterization, hemodialysis should follow. PLAN: 1. Hemodialysis Wednesday, Wednesday and Wednesday. 2. Continue maximum dose of Aranesp and continue Venofer on dialysis. 3. 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 dialysis unit in [place], [place], this is the patient's preference in light of where he lives and his work schedule. 4. Again, if okay with Dr. Dee evaluation for vascular access creation prior to the patient leaving hospital. Uri Beavers MD
[2016-12-06] MEDS: Oxycodone/Acetaminophen 5/325 mg Tab PO PRN (22:30)
[2016-12-07 03:21] VITALS: O2SAT 99
[2016-12-07 07:44] LABS: BASO # 0.04 K/mm3 (0.0-2.0); BASO % 0.7 % (0.0-3.0); EOS # 0.2 (0.0-0.7); EOS % 3.2 % (1.5-5.0); GRAN # 3.69 (1.4-6.5); GRAN % 61.2 % (50.0-68.0); HEMATOCRIT 28.5 % (42.0-52.0); LYMPH # 1.4 (1.2-3.4); LYMPH % 22.9 % (22.0-35.0); MEAN CELL VOLUME 81.9 fl (80.0-105.0); MEAN CORPUSCULAR HEMOGLOBIN 26.1 pg (25.0-35.0); MEAN CORPUSCULAR HGB CONC 31.9 g/dl (31.0-37.0); MEAN PLATELET VOLUME 9.1 fl (7.0-11.0); MONO # 0.7 (0.1-0.6)
[2016-12-07 07:57] LABS: ALB/GLOB RATIO 1.1 (1.1-1.8); BILIRUBIN,TOTAL 0.6 mg/dL (0.2-1.3); CALCIUM 8.5 mg/dL (8.4-10.5); TOTAL PROTEIN 6.2 g/dL (5.8-8.3)
[2016-12-07] MEDS: Insulin Reg-MEDIUM-Coverage SC SCH ×4 (08:22→22:36)
[2016-12-07] MEDS: Multivitamin Vitamin B Complex (Nephro-Vite) Tab PO SCH ×2 (08:23→08:32)
--- NOTE | 2016-12-07 08:35 | PN ---
DATE: 12/04/2016 SUBJECTIVE: The patient is seen lying in bed. He is awake. He is alert. He is comfortable. He denies any pain. He denies any shortness of breath. PHYSICAL EXAMINATION: GENERAL: Elderly male lying in bed. VITAL SIGNS: Blood pressure 148/83, heart rate is 67, respiratory rate 16, temperature 98.7. HEENT: Normocephalic, atraumatic. NECK: Supple. No JVD. LUNGS: Bilateral equal air entry, no rales. CARDIAC: S1 and S2, regular rate and rhythm, no murmur, no rub. ABDOMEN: Soft, nondistended, nontender, bowel sounds present. EXTREMITIES: No lower extremity edema. INTAKE AND OUTPUT: 1630/400. LABORATORY DATA: WBC 7.2, hemoglobin 8.8, hematocrit 27, platelets 157. Sodium 140, potassium 4.2, chloride 101, CO2 is 28, BUN 39, creatinine 6.5, glucose 151, calcium 7.5, albumin 3.4, corrected calcium is 7.9, PTH is 414. Vitamin D is less than 12.8. CURRENT MEDICATIONS: Aspirin, Catapres, insulin, Lipitor, Norvasc, Percocet, Tylenol, Zofran. ASSESSMENT AND PLAN: 1. End-stage renal disease, now on dialysis. 2. Severe anemia. 3. ? Demand ischemia. 4. Non-insulin dependant diabetes mellitus. 5. Hypertension. 6. Secondary hyperparathyroidism. 7. Hypocalcemia. 8. Hypovitaminosis D. PLAN: 1. Drisdol 50,000 units 1 dose now. 2. Hectorol. 3. Dialysis today. 4. Arrange for outpatient dialysis. 5. The patient wants to consider peritoneal dialysis, so no plans for AV fistula at this time. 6. Monitor fingerstick. 7. Continue antihypertensive. 8. The patient is cleared for discharge from the renal standpoint. If cardiac catheterization is planned, the patient will stay. Arielle Hancock MD
--- NOTE | 2016-12-07 09:02 | CP.PCM.CON ---
History of Present Illness - History of Present Illness History of Present Illness: Surgery Consult Note for Dr. Morales (Dr. Garcia Covering) Reason for Consult: AV fistula HPI: Patient 66M with a PMH of NIDDM, HTN, CKD, CHF?, anemia of chronic disease and sickle cell trait (no prior attacks). Patient was admitted to the hospital following a cardiac cath, which was done for increasing sob with exertion and weakness over the previous two weeks. The patient had a tunneled dialysis cath placed on 12/02/[address] Norman Vo. Patient underwent dialysis on Wednesday ( 12/02) and Wednesday (12/04). He was transfused two units of pRBCs on 12/03 for Hgb of 6.6. Patient states he does not have any SOB currently, but he states he does not know if he will become short of breath once he starts walking. He reports that he started becoming SOB while walking up one flight of stairs prior to admission. Patient is currently NPO for a left heart cath later this morning with Dr. Marie. PMH: NIDDM, HTN, CKD, CHF?, anemia of chronic disease and sickle cell trait (no prior attacks) PSH: Tunneled dialysis cath (12/02/16) FamilyHx: Patient's family is from [facility] - parents are but pt does not know what from SocialHx: denies ever using tobacco, denies alcohol and illicit drug use Allergies: NKDA PMD: Dr. Sumner Nephro: Dr. Beavers Review of Systems - Constitutional Constitutional: Fatigue, Weakness (generalized). absent: Chills, Fever, Headache - EENT Eyes: absent: Blurred Vision, Change in Vision Nose/Mouth/Throat: absent: Nasal Congestion, Nasal Discharge, Post Nasal Drip, Sore Throat, Neck Pain - Cardiovascular Cardiovascular: Dyspnea on Exertion. absent: Chest Pain, Orthopnea, Palpitations, Pedal Edema, Syncope - Respiratory Respiratory: Dyspnea on Exertion. absent: Cough, Wheezing, Excessive Mucous Production - Gastrointestinal Gastrointestinal: absent: Abdominal Pain, Constipation, Diarrhea, Heartburn, Nausea, Vomiting - Genitourinary Genitourinary: absent: Difficulty Urinating, Urinary Frequency, Urinary Hesitance, Urinary Urgency - Musculoskeletal Musculoskeletal: absent: Back Pain, Muscle Cramps, Numbness, Stiffness, Tingling - Integumentary Integumentary: absent: Erythema, Pruritus, Rash, Swelling - Neurological Neurological: Weakness (generalized). absent: Disequilibrium, Dizziness, Numbness, Headaches, Syncope - Psychiatric Psychiatric: As Per HPI - Endocrine Endocrine: Fatigue ("I get tired very easily"). absent: Excessive Sweating, Palpitations Past Patient History - Past Social History Smoking Status: Former Smoker - CARDIAC Hx Cardiac Disorders: Yes Hx Angina: Yes Hx Hypercholesterolemia: Yes Hx Hypertension: Yes - PULMONARY Hx Respiratory Disorders: No - NEUROLOGICAL Hx Neurological Disorder: No - HEENT Hx Cataracts: Yes - RENAL Hx Dialysis: Yes Hx Renal Failure: Yes - ENDOCRINE/METABOLIC Hx Endocrine Disorders: Yes Hx Diabetes Mellitus Type 2: Yes - HEMATOLOGICAL/ONCOLOGICAL Hx Blood Transfusions: No Hx Blood Transfusion Reaction: Yes - INTEGUMENTARY Hx Dermatological Problems: No - MUSCULOSKELETAL/RHEUMATOLOGICAL Hx Falls: No - GASTROINTESTINAL Hx Gastrointestinal Disorders: No - GENITOURINARY/GYNECOLOGICAL Hx Genitourinary Disorders: No - PSYCHIATRIC Hx Substance Use: No - SURGICAL HISTORY Hx Surgeries: Yes - ANESTHESIA Hx Anesthesia Reactions: No Hx Malignant Hyperthermia: No Meds Allergies/Adverse Reactions: Allergies Allergy/AdvReac Type Severity Reaction Status Date / Time No Known Allergies Allergy Verified 11/30/16 14:01 - Medications Medications: Current Medications Acetaminophen (Tylenol 325mg Tab) 650 mg PO Q4 PRN PRN Reason: Pain, Mild (1-3) Last Admin: 12/05/16 21:10 Dose: 650 mg Amlodipine Besylate (Norvasc) 10 mg PO DAILY [facility] Last Admin: 12/06/16 09:48 Dose: 10 mg Aspirin (Aspirin Chewable) 81 mg PO DAILY [facility] Last Admin: 12/07/16 08:32 Dose: 81 mg Atorvastatin Calcium (Lipitor) 80 mg PO DIN [facility] Last Admin: 12/06/16 17:31 Dose: 80 mg Calcium Acetate (Phoslo) 667 mg PO WM [facility] Last Admin: 12/07/16 08:33 Dose: 667 mg Clonidine HCl (Catapres) 0.1 mg PO Q8 PRN PRN Reason: Systolic BP >160 Last Admin: 12/07/16 06:04 Dose: 0.1 mg Ergocalciferol (Drisdol 50,000 Intl Units Cap) 1 cap PO Q7D [facility] Last Admin: 12/04/16 18:39 Dose: 1 cap Insulin Human Regular (Humulin R Med) 0 units SC ACHS [facility] PRN Reason: Protocol Last Admin: 12/07/16 08:22 Dose: Not Given Losartan Potassium (Cozaar) 100 mg PO DAILY [facility] Last Admin: 12/07/16 08:32 Dose: 100 mg Ondansetron HCl (Zofran Inj) 4 mg IVP Q6H PRN PRN Reason: Nausea/Vomiting Last Admin: 12/02/16 19:10 Dose: 4 mg Oxycodone/Acetaminophen (Percocet 5/325 Mg Tab) 1 tab PO Q4H PRN PRN Reason: Pain, moderate (4-7) Stop: 12/09/16 17:41 Last Admin: 12/06/16 22:30 Dose: 1 tab Vitamin B Complex/Vit C/Folic Acid (Nephro-Nisha) 1 tab PO 0800 [facility] Last Admin: 12/07/16 08:32 Dose: 1 tab Physical Exam - Constitutional Appears: Non-toxic, No Acute Distress - Head Exam Head Exam: ATRAUMATIC, NORMOCEPHALIC - Eye Exam Eye Exam: EOMI, Normal appearance, PERRL. absent: Scleral icterus - ENT Exam ENT Exam: Mucous Membranes Moist - Respiratory Exam Respiratory Exam: Clear to Auscultation Bilateral, NORMAL BREATHING PATTERN. absent: Accessory Muscle Use, Rales, Wheezes, Respiratory Distress - Cardiovascular Exam Cardiovascular Exam: REGULAR RHYTHM, +S1, +S2 - GI/Abdominal Exam GI & Abdominal Exam: Soft. absent: Distended, Firm, Guarding, Rigid, Tenderness - Extremities Exam Extremities exam: Positive for: normal capillary refill, normal inspection, pedal pulses present. Negative for: calf tenderness, pedal edema, tenderness - Back Exam Back exam: absent: CVA tenderness (L), CVA tenderness (R), paraspinal tenderness , vertebral tenderness - Neurological Exam Neurological exam: Alert, Oriented x3 - Psychiatric Exam Psychiatric exam: Normal Affect, Normal Mood - Skin Skin Exam: Dry, Normal Color, Warm Results - Vital Signs Recent Vital Signs: Last Vital Signs Temp 98.3 F 12/07/16 06:00 Pulse 75 12/07/16 06:04 Resp 20 12/07/16 06:00 BP 151/91 H 12/07/16 08:37 Pulse Ox 99 12/07/16 06:00 - Labs Result Diagrams: 12/07/16 07:25 12/07/16 07:25 Labs: Laboratory Results - last 24 hr 12/07/16 12/07/16 07:25 07:25 WBC 6.0 RBC 3.48 L Hgb 9.1 L Hct 28.5 L MCV 81.9 MCH 26.1 MCHC 31.9 RDW 14.0 Plt Count 166 MPV 9.1 Gran % 61.2 Lymph % (Auto) 22.9 Sherman % (Auto) 12.0 H Eos % (Auto) 3.2 Baso % (Auto) 0.7 Gran # 3.69 Lymph # 1.4 Sherman # 0.7 H Eos # 0.2 Baso # 0.04 Sodium 139 Potassium 4.0 Chloride 101 Carbon Dioxide 27 Anion Gap 15 BUN 51 H Creatinine 8.5 H* D Est GFR ( Amer) 8 Est GFR (Non-Af Amer) 6 Random Glucose 126 H Calcium 8.5 Total Bilirubin 0.6 AST 33 ALT 29 Alkaline Phosphatase 160 H Total Protein 6.2 Albumin 3.2 Globulin 2.9 Albumin/Globulin Ratio 1.1 Assessment & Plan - Assessment and Plan (Free Text) Assessment: 66M with ESRD on HD Plan: ESRD on HD - eval for AV fistula * Dialysis schedule MWF * Tunneled Cath placed on 12/02/[address] Norman Vo * f/u vein mapping for evaluation of AV fistula - patient is right hand dominate * f/u left heart cath with Dr. Marie on 12/07/16 - f/u recs * Will need AV fistula * Further recs per Dr. Morales Will discuss case with Dr. Morales and Dr. Garcia (covering for Dr. Morales) Mauricio Her PGY1 - Date & Time Date: 12/07/16 Time: 09:00
[2016-12-07] MEDS ORDERED: Midazolam 2 MG/2 ML VIAL ONE ×2 (09:04→11:03)
[2016-12-07] MEDS ORDERED: Lidocaine 2% Inj (20ml) ONE (09:04)
[2016-12-07] MEDS ORDERED: Iodixanol 320 MG/ML 100 ML BOTTLE IV ONE (09:05)
[2016-12-07] MEDS ORDERED: Iodixanol 320 MG/ML 200 ML BOTTLE IV ONE (09:05)
--- NOTE | 2016-12-07 09:07 | PN ---
SUBJECTIVE: The patient was seen and examined at the bedside on the telemetry rhodes. No acute events overnight. He remains afebrile and hemodynamically stable. This morning he has pending cardiac catheterization with Dr. Marie. His sole complaint is that of right shoulder pain with intermittent paresthesias to his right hand. There is no complaint of weakness. OBJECTIVE: VITAL SIGNS: Temperature 98.3, pulse 75, blood pressure 165/85, respiratory rate 20, and oxygen saturation 99% on room air. GENERAL: No apparent distress. HEENT: PERRL. EOMI. No scleral icterus. Mild conjunctival pallor is noted. NECK: No JVD. LUNGS: Clear to auscultation. CARDIOVASCULAR: Regular rate and rhythm. Normal S1 and S2. ABDOMEN: Normoactive bowel sounds. Soft, nontender, and nondistended. EXTREMITIES: No edema. NEUROLOGIC: Awake, alert, and oriented x3. No focal motor deficits. LABORATORY DATA: WBC 6 with 61% neutrophils, hemoglobin 9.1, hematocrit 28, platelets 166. Chemistry reviewed and unremarkable with the exception of BUN 51, creatinine 8.5. ASSESSMENT: The patient is a 66 year old man with past medical history of hypertension, NIDDM, hyperlipidemia, ESRD, anemia of chronic disease and sickle cell trait who presented for evaluation of worsening exertional dyspnea and increased fatigability and who was admitted to the telemetry rhodes for continued management of ESRD, initiation of hemodialysis and treatment of severe symptomatic anemia. PLAN: 1. Anemia of chronic disease, symptomatic, resolved. The patient is s/p IV iron and transfusions of PRBCs. His hemoglobin appears to be at his baseline (9 -10). Continue to monitor CBC daily. 2. ESRD. He is newly started on hemodialysis. Input from Dr. Beavers noted and appreciated. Continue with hemodialysis as per the nephrology team. Dr. Morales has been consulted for evaluation for AV fistula placement. 3. Angina. The patient is pending cardiac catheterization this morning with Dr. Marie. 4. Hypertension. Continue Norvasc 10 mg p.o. daily and losartan 100 mg p.o. daily. 5. Hyperlipidemia. Continue Lipitor 80 mg p.o. daily. 6. NIDDM, well controlled with a hemoglobin A1c of 6.3. Continue medium dose ISS and fingerstick monitoring. 7. Right shoulder pain, consider secondary to underlying musculoskeletal injury vs possible brachial plexus injury given recent placement of hemodialysis access catheter. We will obtain x-ray. Continue with Percocet as needed for pain. 8. Metabolic acidosis, resolved. 9. BPH. 10. Prophylaxis. GI prophylaxis not indicated as the patient is eating. DVT prophylaxis not indicated as the patient is ambulatory. CODE STATUS: Full code. Fredrick Dee MD MTDD
[2016-12-07] MEDS ORDERED: Sodium Chloride 0.45% 1,000 ML IV SCH (12:00)
[2016-12-07 13:23] VITALS: TEMP 98.7
[2016-12-07 14:32] VITALS: RESP 19
[2016-12-07 16:01] LABS: ALUMINUM 3 mcg/L (<7)
--- NOTE | 2016-12-07 17:00 | CARDCATH ---
PROCEDURE DATE: 12/07/2016 HISTORY: The patient is a 66-year-old male with multiple cardiac risk factors including renal insufficiency, who presented with an abnormal stress test. The patient was placed on dialysis because of his progressive renal insufficiency. The cardiac catheterization then followed. PROCEDURE: Left heart catheterization with coronary arteriography and left ventriculogram. The right femoral artery was cannulated with 6-Japanese sheath. There were no complications. Findings on catheterization revealed a left ventricle that was within normal limits. Estimated ejection fraction of 60%. The patient has a codominant circulation. The RCA revealed intimal irregularities without significant stenosis. The left main artery was unremarkable. The circumflex artery and obtuse marginal branches were with a large system with intimal irregularities without significant stenosis. The LAD revealed diffuse intimal irregularities with a long segment that was a intramyocardial segment which revealed a 50% stenosis. Angio-Seal was used to close the femoral artery site. The patient tolerated the procedure well. In summary, the procedure revealed single-vessel CAD with a 50% stenosis in the mid LAD which was also intramyocardial. LV function is normal. Given these findings, the patient will need to remain on aspirin indefinitely and undergo a strict cardiac risk reduction program. Norman Marie MD
[2016-12-07] MEDS: Oxycodone/Acetaminophen 5/325 mg Tab PO PRN ×2 (19:10→23:26)
[2016-12-07 19:57] VITALS: PULSE 87
--- NOTE | 2016-12-07 20:20 | PN ---
DATE: 12/07/2016 SUBJECTIVE: The patient is seen lying in bed. He is awake. He is alert. He is comfortable. He is status post cardiac catheterization. He is found to have mild nonobstructive CAD. PHYSICAL EXAMINATION: GENERAL: Elderly male lying in bed. VITAL SIGNS: Blood pressure 166/86, heart rate 67, respiratory rate 19, temperature 98. HEENT: Normocephalic, atraumatic. NECK: Supple, no JVD. LUNGS: Bilateral equal entry, no rales. CARDIAC: S1 and S2, regular rate and rhythm, no murmur, no rub. ABDOMEN: Soft, nondistended, nontender, bowel sounds present. EXTREMITIES: No lower extremity edema. INTAKE AND OUTPUT: Not charted. LABORATORY DATA: WBC 6, hemoglobin 9, hematocrit 28.5, platelets 156. Sodium 139, potassium 4.0, chloride 101, CO2 of 27, BUN 51, creatinine 8.5, glucose 126, calcium 8.5, albumin 3.2. Hepatitis profile negative. CURRENT MEDICATIONS: Aspirin, Catapres p.r.n., Cozaar 100, ergocalciferol, Humulin, Lipitor, oxycodone, PhosLo, Tylenol, and Zofran. ASSESSMENT: 1. End-stage renal disease, dialysis today. 2. Severe hypertension, continue angiotensin receptor kelvin, clonidine p.r.n. 3. Secondary hyperparathyroidism and hyperphosphatemia. 4. Severe anemia. PLAN: 1. Dialysis today. 2. Outpatient dialysis at [facility] on Wednesday, , and Wednesday at 10:30. 3. Continue phosphate binders. 4. The patient to explore peritoneal dialysis. 5. The patient to follow up in transplant clinic. Arielle Hancock MD
[2016-12-08 07:10] LABS: BASO # 0.03 K/mm3 (0.0-2.0); BASO % 0.5 % (0.0-3.0); EOS # 0.2 (0.0-0.7); EOS % 2.8 % (1.5-5.0); GRAN # 3.75 (1.4-6.5); GRAN % 65.9 % (50.0-68.0); HEMATOCRIT 30.6 % (42.0-52.0); LYMPH # 0.7 (1.2-3.4); LYMPH % 11.6 % (22.0-35.0); MEAN CELL VOLUME 83.2 fl (80.0-105.0); MEAN CORPUSCULAR HEMOGLOBIN 26.4 pg (25.0-35.0); MEAN CORPUSCULAR HGB CONC 31.7 g/dl (31.0-37.0); MEAN PLATELET VOLUME 9.6 fl (7.0-11.0); MONO # 1.1 (0.1-0.6); MONO % 19.2 % (1.0-6.0); RED CELL DISTRIBUTION WIDTH 14.3 % (11.5-14.5); WHITE BLOOD COUNT 5.7 10^3/ul (4.5-11.0)
[2016-12-08 07:14] LABS: ALB/GLOB RATIO 1.2 (1.1-1.8); BILIRUBIN,TOTAL 0.8 mg/dL (0.2-1.3); CALCIUM 8.8 mg/dL (8.4-10.5); POTASSIUM 4.1 mmol/L (3.6-5.0); TOTAL PROTEIN 6.5 g/dL (5.8-8.3)
[2016-12-08] MEDS: Insulin Reg-MEDIUM-Coverage SC SCH (07:55)
[2016-12-08] MEDS: Multivitamin Vitamin B Complex (Nephro-Vite) Tab PO SCH (08:15)
--- NOTE | 2016-12-08 08:22 | RAD ---
PROCEDURE: Radiographs of the Right Shoulder HISTORY: right shoulder pain COMPARISON: No prior. FINDINGS: BONES: No destructive bony lesion or fracture identified. JOINTS: Gross degenerative changes seen at the inferior margins of the glenohumeral joint where osteophytic development is prominent and there is marked articular cortical sclerosis. The acromioclavicular joint appears only mildly degenerated. SOFT TISSUES: Normal. OTHER FINDINGS: A tunnelled right central venous dialysis catheter is identified placed by an apparent right internal jugular approach. IMPRESSION: Advanced glenohumeral joint osteoarthritis. No acute fracture. No dislocation.
[2016-12-08 09:05] VITALS: BP 152/67
--- NOTE | 2016-12-08 11:46 | US ---
HISTORY: End-stage renal disease. Evaluate superficial veins for AV access placement PHYSICIAN(S): Norman Vo MD. FINDINGS: Right upper extremity: The right basilic vein is small and knee forearm, measuring 2 mm. The right basilic vein at the elbow is normal in size, measuring 3 mm. The right basilic vein above the elbow is large, measuring 4-6 mm. The right cephalic vein in the forearm is small, measuring 2 mm. The right cephalic vein at the elbow is dilated and contains thrombus, consistent with acute superficial thrombophlebitis. The right cephalic vein in the mid upper arm is normal, measuring 5-6 mm. Left upper extremity: The left basilic vein in the forearm is small, measuring 1-2 mm. The left basilic vein at the elbow is normal, measuring 4 mm. The left basilic vein above the elbow is large, measuring 4-6 mm. The left cephalic vein in the forearm is small, measuring 2-3 mm. The left cephalic vein at the elbow is normal measuring 6 mm. The left cephalic vein in the upper arm measures 3-5 mm. IMPRESSION: 1. Thrombus in the right cephalic vein at the elbow 2. The forearm veins are somewhat small in caliber. The veins above the elbow are normal in size.
--- NOTE | 2016-12-08 13:46 | PN ---
SUBJECTIVE: The patient was seen and examined at the bedside in the telemetry rhodes. No acute events overnight. This morning, the patient states he feels well, offers no complaints and is pending discharge to home. OBJECTIVE: VITAL SIGNS: Temperature 98.7, pulse 87, blood pressure 166/86, respiratory rate 20, and oxygen saturation 98% on room air. GENERAL: No apparent distress. HEENT: PERRL. EOMI. No scleral icterus. Mild conjunctival pallor is noted. NECK: No JVD. LUNGS: Clear to auscultation. CARDIOVASCULAR: Regular rate and rhythm. Normal S1 and S2. ABDOMEN: Normoactive bowel sounds. Soft, nontender, nondistended. EXTREMITIES: No edema. No femoral bruit. NEUROLOGIC: Awake, alert and oriented x3. No focal motor deficits. LABORATORY DATA: WBC 5.7, hemoglobin 9.7, hematocrit 30, and platelets 184. Chemistry reviewed and unremarkable with the exception of BUN 36 and creatinine 6.4. ASSESSMENT: The patient is a 66-year-old man with past medical history of hypertension, NIDDM, hyperlipidemia, ESRD, anemia of chronic disease and sickle cell trait who presented for evaluation of worsening exertional dyspnea and increased fatigability and who was admitted for continued management of ESRD, initiation of hemodialysis and treatment of severe symptomatic anemia. PLAN: 1. Anemia of chronic disease, symptomatic, resolved. Labs demonstrate stable hemoglobin at patient's baseline (9-10) 2. ESRD, newly started on HD. Arrangements have been made for continued HD at a facility in [place]. Input from Dr. Beavers and Dr. Hancock noted and appreciated. The patient is to follow up with Dr. Morales as an outpatient for vascular study to facilitate continued hemodialysis. 3. Nonobstructive CAD. Input from Dr. Marie noted and appreciated and the patient is s/p cardiac catheterization which demonstrated nonobstructive CAD. We will continue with medical management. 4. Hypertension. Continue Norvasc 10 mg p.o. daily, Losartan 100 mg p.o. daily , and clonidine 0.1 mg p.o. q.8 hours. 5. Hyperlipidemia. Continue Lipitor 80 mg p.o. daily. 6. NIDDM. Continue medium dose ISS and fingerstick monitoring. 7. Metabolic acidosis, resolved. 8. Benign prostatic hyperplasia. 9. Prophylaxis. GI prophylaxis not indicated as the patient is eating. DVT prophylaxis not indicated as the patient is ambulatory. 10. Disposition. The patient for discharge to home today. Code status: Full code. Fredrick Dee MD MTDD
--- NOTE | 2016-12-08 13:50 | PN ---
DATE: 12/08/2016 SUBJECTIVE: The patient is asymptomatic status post cardiac catheterization. PHYSICAL EXAMINATION: VITAL SIGNS: Blood pressure is 152/67, heart rate in the 80s. NECK: Negative JVD. LUNGS: Without rales. HEART: S1, S2. ABDOMEN: The right groin site is stable. EXTREMITIES: Without edema. LABORATORY: Hemoglobin is 9.7. Chemistries: BUN and creatinine is 36 and 6.4. IMPRESSION: 1. Nonobstructive coronary artery disease. 2. Diabetes mellitus. 3. End-stage renal disease. 4. Hypertension. PLAN: Given these findings, the patient is stable from a cardiac perspective for discharge. He will need to be on aspirin indefinitely. I have instructed the patient to follow up with Dr. Dee for cardiac risk reduction program which should include statin therapy. Noramn Marie MD
== END 2016-12-08 11:58 | disposition home or self-care (01) | DRG 683 ==
LOC: ED 08:53 → ERH 09:55 → 2RNO 13:55 → 2RSO 12-07 12:35
PROVIDERS: ADMIT Student in an Organized Health Care Education/Training Program; ATTEND Student in an Organized Health Care Education/Training Program
PROC: 02H633Z Insertion of Infusion Device into Right Atrium, Percutaneous Approach (ICD-10-PCS; principal; 2016-12-02)
PROC: B543ZZA Ultrasonography of Right Jugular Veins, Guidance (ICD-10-PCS; 2016-12-02)
PROC: 5A1D70Z Performance of Urinary Filtration, Intermittent, Less than 6 Hours Per Day (ICD-10-PCS; 2016-12-02)
PROC: 30233N1 Transfusion of Nonautologous Red Blood Cells into Peripheral Vein, Percutaneous Approach (ICD-10-PCS; 2016-12-03)
PROC: 4A023N7 Measurement of Cardiac Sampling and Pressure, Left Heart, Percutaneous Approach (ICD-10-PCS; 2016-12-07)
PROC: B2151ZZ Fluoroscopy of Left Heart using Low Osmolar Contrast (ICD-10-PCS; 2016-12-07)
PROC: B2111ZZ Fluoroscopy of Multiple Coronary Arteries using Low Osmolar Contrast (ICD-10-PCS; 2016-12-07)
DX: N17.9 Acute kidney failure, unspecified (principal); I13.2 Hypertensive heart and chronic kidney disease with heart failure and with stage 5 chronic kidney disease, or end stage renal disease; E87.2 Acidosis; E11.22 Type 2 diabetes mellitus with diabetic chronic kidney disease; N18.6 End stage renal disease; I50.9 Heart failure, unspecified; I25.118 Atherosclerotic heart disease of native coronary artery with other forms of angina pectoris; N25.81 Secondary hyperparathyroidism of renal origin; D63.8 Anemia in other chronic diseases classified elsewhere; E78.5 Hyperlipidemia, unspecified; N40.0 Benign prostatic hyperplasia without lower urinary tract symptoms; D57.3 Sickle-cell trait; H26.9 Unspecified cataract; E87.5 Hyperkalemia; E83.39 Other disorders of phosphorus metabolism; E83.51 Hypocalcemia; E55.9 Vitamin D deficiency, unspecified; M25.511 Pain in right shoulder; Z79.84 Long term (current) use of oral hypoglycemic drugs; Z87.891 Personal history of nicotine dependence

== ENCOUNTER 2016-12-31 07:18 | Inpatient (IN) | payer BC, MEDICARE ==
--- NOTE | 2016-12-31 08:42 | ED PDOC ---
Arrival/HPI - General Chief Complaint: Abnormal Labs Time Seen by Provider: 12/31/16 07:29 Historian: Patient - History of Present Illness Narrative History of Present Illness (Text): 12/31/16 08:42 66 year old M p/w R IJ DVT. Patient recently had shiley catheter placed and has been on dialysis. Recently found to have R IJ DVT on outpatient US, also with positive blood culture. Instructed to come to ED yesterday but states he could not make it. Patient denies fever, chills, chest pain, shortness of breath, or palpitations. PMD: Fredrick Sumner Time/Duration: 24 hours Severity Level: Mild Past Medical History - Provider Review Nursing Documentation Reviewed: Yes - Travel History Have you recently traveled outside [place] w/in the past 3 mons?: No - Infectious Disease Hx of Infectious Diseases: None - Cardiac Hx Cardiac Disorders: Yes Hx Angina: Yes Hx Hypertension: Yes - Pulmonary Hx Respiratory Disorders: No - Neurological Hx Neurological Disorder: No - HEENT Hx Cataracts: Yes - Renal Hx Dialysis: Yes Date of Last Dialysis Treatment: 12/29/16 Hx Renal Failure: Yes - Endocrine/Metabolic Hx Endocrine Disorders: Yes Hx Diabetes Mellitus Type 2: Yes - Hematological/Oncological Hx Blood Transfusions: No Hx Blood Transfusion Reaction: Yes - Integumentary Hx Dermatological Disorder: No - Musculoskeletal/Rheumatological Hx Falls: No - Gastrointestinal Hx Gastrointestinal Disorders: No - Genitourinary/Gynecological Hx Genitourinary Disorders: No - Psychiatric Hx Psychophysiologic Disorder: No Hx Substance Use: No - Past Surgical History Past Surgical History: Non-Contributing - Surgical History Hx Eye Surgery: Yes Other/Comment: cataracts-both eyes - Anesthesia Hx Anesthesia Reactions: No Hx Malignant Hyperthermia: No - Suicidal Assessment Feels Threatened In Home Enviroment: No Family/Social History - Physician Review Nursing Documentation Reviewed: Yes Family/Social History: No Known Family HX, Unknown Family HX Smoking Status: Former Smoker Hx Alcohol Use: No Hx Substance Use: No Allergies/Home Meds Allergies/Adverse Reactions: Allergies No Known Allergies Allergy (Verified 12/31/16 11:24) Home Medications: Home Meds Medication Instructions Recorded Confirmed Amlodipine Bes/Olmesartan Med 1 tab PO DAILY 11/30/16 12/31/16 [Prema 10 mg-40 mg] Sitagliptin Phos/Metformin HCl 1 tab PO DAILY 11/30/16 12/31/16 [Janumet 50-500 mg Tablet] Review of Systems - Physician Review All systems were reviewed & negative as marked: Yes - Review of Systems Respiratory: absent: SOB Cardiovascular: absent: Chest Pain Physical Exam - Physical Exam Narrative Physical Exam (Text): Constitutional: No acute distress. Head: Normocephalic. Atraumatic. Eyes: PERRL. ENT: Moist mucous membranes. Neck: Supple. Cardiovascular: Regular rate. Radial pulse 2+ bilaterally. Chest:Right side chiley catheter, clean, dry, no drainage. Respiratory: Clear to auscultation bilaterally. GI: Soft. Nontender. Nondistended. Back: No CVA tenderness. Musculoskeletal: No tenderness or swelling of extremities. Skin: No rash. Neurologic: Alert, no focal deficit. Vital Signs Temp Pulse Resp BP Pulse Ox 12/31/16 11:09 62 18 143/73 97 12/31/16 09:30 62 16 151/74 H 100 12/31/16 07:56 98.5 F 62 17 144/82 100 Medical Decision Making ED Course and Treatment: 12/31/16 08:50 Plans: * Blood labs * EKG * Chest X-ray Dr. Sumner accepts patient to his service, recommends Dr. Mcgee for ID, will defer antibiotic choices to him given that patient is afebrile without signs of sepsis. Dr. Hancock consulted for renal, recommended hypercoagulability panel, which I placed for her. Dr. Cuadra consulted for anemia and coag workup. Guaiac negative at bedside. Dr. Norman Vo consulted, patient will likely require catheter change. - Lab Interpretations Lab Results: 12/31/16 08:36 12/31/16 08:36 Lab Results 12/31/16 08:36: Blood Type B POSITIVE, Antibody Screen Negative, BBK History Checked Patient has bt 12/31/16 08:36: Sodium 137, Potassium 4.0, Chloride 97 L, Carbon Dioxide 31, Anion Gap 14, BUN 37 H, Creatinine 7.2 H, Est GFR ( Amer) 9, Est GFR (Non -Af Amer) 8, Random Glucose 184 H, Calcium 7.9 L, Total Bilirubin 0.5, AST 38, ALT 36, Alkaline Phosphatase 183 H, Total Protein 6.4, Albumin 3.1, Globulin 3.3 , Albumin/Globulin Ratio 0.9 L 12/31/16 08:36: PT 11.0, INR 1.00, APTT 25.9 12/31/16 08:36: WBC 8.1 D, RBC 2.53 L, Hgb 6.7 L* D, Hct 20.9 L*, MCV 82.6, MCH 26.5, MCHC 32.1, RDW 14.2, Plt Count 230, MPV 9.4, Gran % 70.2 H, Lymph % ( Auto) 17.7 L, [place] % (Auto) 9.1 H, Eos % (Auto) 2.5, Baso % (Auto) 0.5, Gran # 5.72, Lymph # 1.4, [place] # 0.7 H, Eos # 0.2, Baso # 0.04 - RAD Interpretation Narrative RAD Interpretations (Text): 12/31/16 10:16 HISTORY: blood clot s/p shiley COMPARISON: 12/02/2016. FINDINGS: The right dialysis catheter terminates at the cavoatrial junction. LUNGS: The lungs are well inflated and clear. PLEURA: No significant pleural effusion identified, no pneumothorax apparent. CARDIOVASCULAR: Normal. OSSEOUS STRUCTURES: No significant abnormalities. VISUALIZED UPPER ABDOMEN: Normal. OTHER FINDINGS: None. IMPRESSION: No active pulmonary disease. Radiology Orders: 12/31/16 08:10 CHEST PORTABLE [RAD] Stat Juvenile Justice Specialist: ED Physician, Radiologist - EKG Interpretation EKG Interpretation (Text): 12/31/16 08:52 NSR 62, No ST elevations, T wave inversions laterally. T wave existed on EKG Interpreted by ED Physician: Yes Type: 12 lead EKG Comparison: Com.w/previous EKG - Medication Orders Current Medication Orders: Heparin Sodium/Sodium Chloride (Heparin 58574 Units/250ml 1/2 Normal Saline) 25 ,000 units in 250 mls @ 14.255 mls/hr IV .[id number] PRN; Protocol; 18 UNITS/KG/HR PRN Reason: ADJUST RATE PER PROTOCOL Insulin Human Regular (Humulin R Med) 0 units SC ACHS HARLEEN PRN Reason: Protocol Discontinued Medications Heparin Sodium (Porcine) (Heparin) 6,300 units 80 units/kg (6300 units) IV ONCE ONE PRN Reason: Protocol Stop: 12/31/16 12:46 - Scribe Statement The provider has reviewed the documentation as recorded by the Scribe Swetha posey All medical record entries made by the Scribe were at my direction and personally dictated by me. I have reviewed the chart and agree that the record accurately reflects my personal performance of the history, physical exam, medical decision making, and the department course for this patient. I have also personally directed, reviewed, and agree with the discharge instructions and disposition. Disposition/Present on Arrival - Present on Arrival Any Indicators Present on Arrival: Yes History of DVT/PE: No History of Uncontrolled Diabetes: Yes Urinary Catheter: No History of Decub. Ulcer: No History Surgical Site Infection Following: None - Disposition Have Diagnosis and Disposition been Completed?: Yes Diagnosis: Deep vein thrombosis, Positive blood culture, Anemia Disposition: HOSPITALIZED Disposition Time: 10:53 Patient Plan: Admission Condition: GUARDED
[2016-12-31 08:49] LABS: BASO # 0.04 K/mm3 (0.0-2.0); BASO % 0.5 % (0.0-3.0); EOS # 0.2 (0.0-0.7); EOS % 2.5 % (1.5-5.0); GRAN # 5.72 (1.4-6.5); GRAN % 70.2 % (50.0-68.0); LYMPH # 1.4 (1.2-3.4); LYMPH % 17.7 % (22.0-35.0); MEAN CELL VOLUME 82.6 fl (80.0-105.0); MEAN CORPUSCULAR HEMOGLOBIN 26.5 pg (25.0-35.0); MEAN CORPUSCULAR HGB CONC 32.1 g/dl (31.0-37.0); MEAN PLATELET VOLUME 9.4 fl (7.0-11.0); MONO # 0.7 (0.1-0.6); MONO % 9.1 % (1.0-6.0); RED CELL DISTRIBUTION WIDTH 14.2 % (11.5-14.5); WHITE BLOOD COUNT 8.1 10^3/ul (4.5-11.0)
[2016-12-31 08:58] LABS: HEMATOCRIT 20.9 % (42.0-52.0); PARTIAL THROMBOPLASTIN TIME 25.9 Seconds (25.1-36.5)
[2016-12-31 09:07] LABS: ALB/GLOB RATIO 0.9 (1.1-1.8); BILIRUBIN,TOTAL 0.5 mg/dL (0.2-1.3); CALCIUM 7.9 mg/dL (8.4-10.5); TOTAL PROTEIN 6.4 g/dL (5.8-8.3)
--- NOTE | 2016-12-31 09:07 | RAD ---
HISTORY: [facility] COMPARISON: 12/02/2016. FINDINGS: The right dialysis catheter terminates at the cavoatrial junction. LUNGS: The lungs are well inflated and clear. PLEURA: No significant pleural effusion identified, no pneumothorax apparent. CARDIOVASCULAR: Normal. OSSEOUS STRUCTURES: No significant abnormalities. VISUALIZED UPPER ABDOMEN: Normal. OTHER FINDINGS: None. IMPRESSION: No active pulmonary disease.
[2016-12-31] MEDS ORDERED: Heparin25000 units/250ml 1/2NS 25,000 UNITS/250 ML BAG IV PRN (10:41)
[2016-12-31] MEDS ORDERED: Collagen Hemostat Powder ONE (10:42)
[2016-12-31] MEDS: Heparin25000 units/250ml 1/2NS 25,000 UNITS/250 ML BAG IV PRN (13:06)
[2016-12-31 13:22] VITALS: BMI 24.3
[2016-12-31] MEDS ORDERED: Darbepoetin Alfa 100 mcg/ml Inj IVP ONE (17:31)
[2016-12-31] MEDS: Insulin Reg-MEDIUM-Coverage SC SCH ×2 (17:56→22:13)
[2016-12-31 21:10] LABS: IRON 81 ug/dL (45-180)
[2016-12-31 21:42] LABS: PROSTATE SPECIFIC ANTIGEN 5.5 ng/mL (0.00-2.5)
[2016-12-31 21:48] LABS: HEMATOCRIT 31.9 % (42.0-52.0); MEAN CELL VOLUME 84.4 fl (80.0-105.0); MEAN CORPUSCULAR HEMOGLOBIN 27.5 pg (25.0-35.0); MEAN CORPUSCULAR HGB CONC 32.6 g/dl (31.0-37.0); MEAN PLATELET VOLUME 10.3 fl (7.0-11.0); RETIC% 1.35 % (0.5-1.5); WHITE BLOOD COUNT 7.7 10^3/ul (4.5-11.0)
[2016-12-31] MEDS ORDERED: Cefepime 1gm in NS 100ml 1 GM/100 ML BAG IVPB SCH (22:00)
--- NOTE | 2016-12-31 22:01 | CARD ---
APPROVED REPORT EKG Measurement Heart [id number] <Conclusion> Normal sinus rhythm T wave abnormality, consider lateral ischemia Prolonged QT Abnormal ECG
--- NOTE | 2016-12-31 22:46 | HP ---
HISTORY OF PRESENT ILLNESS: The patient is a 66-year-old man with a past medical history of hypertension, hyperlipidemia, non-insulin dependent diabetes mellitus, and end stage renal disease newly started on hemodialysis (Wednesday, , Wednesday) who presented to the [facility] for evaluation of right Internal jugular DVT noted at his dialysis center. The patient also reportedly had a positive blood culture with Gram-negative rods and has such was advised to present to the Emergency Department for further evaluation. The patient himself denied fevers, chills, or rigors, but does endorse fatigue and dyspnea with exertion. He furthermore denies melena, hematochezia, hematemesis or bright red blood per rectum. Upon arrival to the ED, he was noted to be afebrile and hemodynamically stable. Initially laboratory studies demonstrated hemoglobin of 6.7 (last hemoglobin of 9.7 on 12/08/2016) and has such was admitted to the remote telemetry [facility] for continued management of right internal jugular DVT and symptomatic anemia. PAST MEDICAL HISTORY: As per HPI, also anemia of chronic disease, sickle cell trait, BPH, and nonobstructive CAD. PAST SURGICAL HISTORY: As per HPI. ALLERGIES: NO KNOWN DRUG ALLERGIES. MEDICATIONS: Norvasc 10 mg p.o. daily, losartan 100 mg p.o. daily, Lipitor 80 mg p.o. daily, and aspirin 81 mg p.o. daily. FAMILY HISTORY: Noncontributory. SOCIAL HISTORY: The patient denies any toxic habits. He has a remote smoking history. REVIEW OF SYSTEMS: A 14-point review of systems is negative except as per HPI. PHYSICAL EXAMINATION: GENERAL: No apparent distress. VITAL SIGNS: Temperature 98.5, pulse 63, blood pressure 150/88, respiratory rate 18, oxygen saturation 97% on room air. HEENT: PERRL. EOMI. No scleral icterus. Conjunctival pallor is noted. NECK: No JVD. LUNGS: Decreased breath sounds at the bases. CARDIOVASCULAR: Regular rate and rhythm. Normal S1 and S2. ABDOMEN: Normoactive bowel sounds. Soft, nontender, nondistended. EXTREMITIES: Trace lower extremity edema bilaterally. NEUROLOGIC: Awake, alert, and oriented x3. No focal motor deficit. LABORATORY DATA: WBC 8.1 with 70% neutrophils, hemoglobin 6.7, hematocrit 21, and platelets 230. Sodium 137, potassium 4, chloride 97, bicarbonate 31, BUN 37, creatinine 7.2, glucose 184, and calcium 7.9. IMAGING STUDIES: Chest x-ray demonstrates no acute pathology. ASSESSMENT: The patient is a 66-year-old man with multiple medical comorbidities including end stage renal disease, newly started on hemodialysis (Wednesday, , Wednesday), anemia of chronic disease, sickle cell trait, hypertension, hyperlipidemia, [id number] diabetes mellitus, and nonobstructive coronary artery disease, who presented from his dialysis center for evaluation of right internal jugular deep vein thrombosis, symptomatic anemia and reportedly positive blood cultures for gram negative rods. PLAN: 1. Right internal jugular deep vein thrombosis *------* by Dr. Norman Vo noted and appreciated. The patient has been started on heparin drip for anticoagulation. Dr. Cuadra, of Hematology/Oncology has been consulted for further evaluation and recommendations and a hypercoagulable workup has been sent and is pending. 2. Symptomatic anemia. Lab demonstrates a hemoglobin of 6.7 and approximately one month ago on discharge his hemoglobin was 9.7. His stool occult blood is reportedly negative. We will type and cross match and transfuse two units of PRBCs. We will continue to monitor CBC daily. 3. End-stage renal disease on hemodialysis. Continue with care as per Dr. Hancock. We will need to make arrangements for possible peritoneal access, as the patient is interested in pursuing peritoneal dialysis. 4. Hypertension. Continue Norvasc 10 mg p.o. daily and losartan 100 mg p.o. daily. 5. Hyperlipidemia. Continue Lipitor 80 mg p.o. daily. 6. Coronary artery disease, nonobstructive. Continue with medical management consisting of Lipitor 80 mg p.o. daily and aspirin 81 mg p.o. daily. 7. Non-insulin dependent diabetes mellitus. Continue medium dose insulin sliding scale and monitoring finger sticks q.a.c. and at bedtime. 8. BPH. 9. Prophylaxis, GI prophylaxis not indicated, as the patient is eating. The patient is on therapeutic heparin for his right internal jugular DVT, thus prophylaxis not indicated. CODE STATUS: Full code. Fredrick Dee MD
--- NOTE | 2016-12-31 23:00 | CON ---
DATE: 12/31/2016 REASON FOR CONSULTATION: Need for dialysis, right DVT,?hypercoagulable state, severe anemia. HISTORY OF PRESENT ILLNESS: A 66-year-old male known to me from outpatient hemodialysis was recently started on dialysis via right IJ catheter. His catheter was found to be clotted 4 days ago. He had his catheter changed over a guidewire. He developed chills and low-grade fever post catheter exchange. He had blood cultures sent as outpatient. He received 1 g of vancomycin, he received 100 mg of gentamicin. Subsequently, he presented for an ultrasound yesterday. He was found to have DVT in the right internal jugular. The patient was advised to come back to the emergency room right away. He did not come back right away, he came back this morning. He denies any shortness of breath. He denies any chest tightness. He denies any abdominal pain. He denies any nausea, vomiting. He is extremely pale. He denies any melena. He complains of constipation. In the emergency room, he is found to have a hemoglobin of 6.9. PAST MEDICAL AND SURGICAL HISTORY: NIDDM, hypertension, hyperlipidemia, chronic anemia, sickle cell trait. FAMILY HISTORY: Noncontributory. SOCIAL HISTORY: No smoking, alcohol use, no IV drug abuse. ALLERGIES: NO KNOWN DRUG ALLERGIES. MEDICATIONS: At home include Prema 10/40 and Janumet 50/500. REVIEW OF SYSTEMS: All systems are reviewed, pertinent positives as mentioned in history of presenting illness, rest unremarkable. PHYSICAL EXAMINATION GENERAL: Younger than stated age appearing male sitting in bed, extremely pale. NECK: Supple, no JVD. LUNGS: Bilateral equal air entry, no rales. CARDIAC: S1 and S2, regular rate and rhythm, no murmur, no rub. ABDOMEN: Soft, nondistended, nontender, bowel sounds present. EXTREMITIES: No lower extremity edema. Positive right IJ catheter, some tenderness around the catheter site. INTAKE AND OUTPUT: Not charted. LABORATORY DATA: Hemoglobin 6.7, hematocrit 20.9 and platelets 230. WBC 8.1, INR 1.0. Sodium 137, potassium 4.0, chloride 97, CO2 of 31, BUN 37, creatinine 7.2, glucose 184, calcium 7.9, AST 38, ALT 36 and albumin 3.1. ASSESSMENT: 1. Severe anemia,?etiology, need to rule out plasma cell dyscrasia. 2. Hypercoagulable state,?. 3. Right internal jugular deep venous thrombosis. 4. Noninsulin-dependent diabetes mellitus. 5. Hypertension. 6. End-stage renal disease. PLAN 1. 24-hour urine for . 2. Follow up hypercoagulable workup. 3. Heparin anticoagulation. 4. Eliquis 5 mg b.i.d. as outpatient. 5. Monitor fingersticks. 6. Dialysis today. 7. Continue current antihypertensives. 8. 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 Thank you for the courtesy of this consultation. We will follow this patient closely with you. Arielle Hancock MD
--- NOTE | 2017-01-01 00:05 | CON ---
DATE: 12/31/2016 REASON FOR CONSULTATION: Newly developed catheter-related DVT as well as severe anemia. HISTORY OF PRESENT ILLNESS: The patient is a 66-year-old male with past medical history significant for known hypertension as well as end-stage renal disease, recently placed on hemodialysis as of 2 weeks ago. The patient now developed a right IJ DVT post Shiley catheter placement. He states that he has developed right-sided neck pain after the catheter was placed and had studies done, which revealed acute DVT. He denies any prior history of DVTs, no PEs. He denies any active bleeding at this point. He has not noted any melena, any hematochezia. His hemoglobin is noted to be 6.5. He received PRBC transfusion two weeks ago for the above as well and hemoglobin climbed up to 9.5. He has been getting Epo supplements as well as Venofer with dialysis with no improvement and count at this point. Denies any weight changes. No fevers. No nausea. No vomiting. No diarrhea. No constipation. No shortness of breath. No other complaints. PAST MEDICAL HISTORY: As above, known history of hypertension for several years and a history of recently being started on hemodialysis. SOCIAL HISTORY: Negative for any tobacco use. No alcohol use. No drug abuse. FAMILY HISTORY: Noncontributory. ALLERGIES: HE IS NOT ALLERGIC TO ANY MEDICATIONS. MEDICATIONS: Currently include Cozaar, Humulin, Lipitor, Norvasc, and Avitene. REVIEW OF SYSTEMS: As per the HPI. PHYSICAL EXAMINATION VITAL SIGNS: Revealed a temperature of 98.7, pulse of 61, respiratory rate of 18, and a blood pressure of 146/78. GENERAL: The patient is an elderly, pleasant male, lying in bed, in no acute distress. HEAD AND NECK: Normocephalic and atraumatic. Eyes; pupils equal, round, reactive to light and accommodation. Extraocular muscles are intact. There is marked pallor. No icterus is noted. Neck is supple with no adenopathy. No JVD. No thyromegaly. LUNGS: Clear to auscultation bilaterally with no rales or rhonchi. CARDIOVASCULAR: S1 and S2 is heard. ABDOMEN: Positive bowel sounds. Soft, nontender, and nondistended. No organomegaly is palpated. EXTREMITIES: There is no edema, no clubbing or cyanosis. LABORATORY DATA: Labs revealed a white count of 8.1, hemoglobin of 6.7, hematocrit of 20.9, MCV of 82.6 and a platelet count of 230. White count does show some monocytosis. Coag studies are within normal limits. Chemistry revealed a BUN and creatinine of 37 and 7.2. Calcium is low at 7.9. Alkaline phosphatase is elevated at 183. Albumin is low as well. His retic count is 1.0. Iron studies were done a few weeks ago and ferritin was noted at 89, but no obvious other abnormalities. He has also had an extensive cardiac workup, which does not reveal any obvious pathology. ASSESSMENT AND PLAN: An elderly male with newly diagnosed end-stage renal disease, on hemodialysis, now developed a catheter-related deep vein thrombosis. Agree with heparin. He will need anticoagulation as he is going to be on ongoing hemodialysis. Discussed with Dr. Hancock. We will start the patient on Eliquis 5 mg p.o. b.i.d., which is not contraindicated in renal patients. He also needs a full hypercoag workup including protein C, S and antithrombin III, factor V Leiden, prothrombin gene mutation as well as MTHFR gene mutation. Also discussed with the patient that as he is severely anemic at this point, need to rule out if there is any GI bleeding. He has had a prior GI workup approximately 2 years ago at which point there was no pathology found,may need a repeat GI workup though he denies any active bleeding. Continue Venofer and Epo supplements as recommended. We will also work the patient up for myeloma as he has acute renal failure recently, serum protein electrophoresis, urine protein electrophoresis as well as immunofixation has been ordered. He will likely need a bone marrow biopsy, which we will arrange for as an outpatient. Thank you for the consult. We will follow. Zaynab Cuadra MD
[2017-01-01 05:37] LABS: HOMOCYSTEINE 29.6 umol/L (<11.4)
[2017-01-01] MEDS: Heparin25000 units/250ml 1/2NS 25,000 UNITS/250 ML BAG IV PRN ×2 (07:50→22:02)
[2017-01-01] MEDS: Insulin Reg-MEDIUM-Coverage SC SCH ×4 (08:21→22:00)
[2017-01-01 08:50] LABS: TOTAL PROTEIN, SERUM 6.7 g/dL (6.1-8.1)
[2017-01-01] MEDS: Cefepime 1gm in NS 100ml 1 GM/100 ML BAG IVPB SCH (09:26)
[2017-01-01 10:22] LABS: MEAN CELL VOLUME 83.6 fl (80.0-105.0); MEAN CORPUSCULAR HEMOGLOBIN 27.4 pg (25.0-35.0); MEAN CORPUSCULAR HGB CONC 32.8 g/dl (31.0-37.0); MEAN PLATELET VOLUME 9.4 fl (7.0-11.0); WHITE BLOOD COUNT 7.5 10^3/ul (4.5-11.0)
[2017-01-01 11:59] LABS: IMMUNOGLOBULIN A 301.6 mg/dL (70.0-400.0); IMMUNOGLOBULIN G 1513.9 mg/dL (700.0-1600.0); IMMUNOGLOBULIN M 88.9 mg/dL (40.0-230.0)
[2017-01-01 12:19] LABS: BETA 1 GLOBULIN 0.3 g/dL (0.4-0.6); BETA 2 GLOBULIN 0.4 g/dL (0.2-0.5); GAMMA GLOBULIN 1.3 g/dL (0.8-1.7)
--- NOTE | 2017-01-01 12:20 | PN ---
DATE: LOCATION: The patient' is in room 375, bed 1. SUBJECTIVE: The patient presented to the Emergency Room yesterday with the chief complaint of a right internal jugular DVT noted at the dialysis center. The patient has a past medical history of hypertension, hyperlipidemia, and non-insulin dependent diabetes mellitus. The patient has end-stage renal disease and is now started on hemodialysis on Wednesday, , and Wednesday. The patient also reportedly had Gram positive cultures. He denied any fever or chills. There had been no acute events overnight. PHYSICAL EXAMINATION VITAL SIGNS: Temperature of 98.4, pulse rate of 69, blood pressure of 151/80s, and O2 saturation of 100% on room air. HEENT: PERRLA. EOMI. NECK: Supple with no bruits and full range of motion. LUNGS: Clear bilaterally. HEART: Regular rate and rhythm. No murmurs, rubs or gallops. ABDOMEN: Benign. NEUROLOGIC: There are no focal deficits. LABORATORY DATA: The patient's lab values are hemoglobin of 6.7, hematocrit of 20.9, on admission and repeat at 11 o'clock last night with hemoglobin of 10.4 and hematocrit of 31.9. His white blood cell count is 7.7. Chemistries: BUN is 37 and creatinine is 7.2, repeat is pending and it will be done when the patient is on dialysis. No reports of any blood cultures yet. The patient will be dialyzed and maintained on current regimen. Parth Dee MD
[2017-01-01 13:38] LABS: FOLATE 5.5 ng/mL
--- NOTE | 2017-01-01 14:43 | CP.PCM.CON ---
History of Present Illness - History of Present Illness History of Present Illness: 66 year old male wiht PMH of ESRD on HD, HTN, chronic anemia, history of cataracts, DM was brought in because he was noted to have DVT associated with the right internal jugular Shiley catheter that he has. He was also apparently found to have positive blood cultures as an outpatient and Infectious Diseases consult is requested to further evaluate and manage. He denies chest pain, no pain at the dialysis catheter site on the right anterior chest wall, no fever or chills, no nausea or vomiting, no headache or dizziness, no abdominal pain, no diarrhea, no dysuria. Review of Systems - Review of Systems All systems: reviewed and no additional remarkable complaints except (as per HPI ) Past Patient History - Infectious Disease Hx of Infectious Diseases: None - Past Social History Smoking Status: Former Smoker - CARDIAC Hx Cardiac Disorders: Yes Hx Angina: Yes Hx Hypertension: Yes - PULMONARY Hx Respiratory Disorders: No - NEUROLOGICAL Hx Neurological Disorder: No - HEENT Hx Cataracts: Yes - RENAL Hx Dialysis: Yes Date of Last Dialysis Treatment: 12/29/16 Hx Renal Failure: Yes - ENDOCRINE/METABOLIC Hx Endocrine Disorders: Yes Hx Diabetes Mellitus Type 2: Yes - HEMATOLOGICAL/ONCOLOGICAL Hx Blood Transfusions: No Hx Blood Transfusion Reaction: Yes - INTEGUMENTARY Hx Dermatological Problems: No - MUSCULOSKELETAL/RHEUMATOLOGICAL Hx Falls: No - GASTROINTESTINAL Hx Gastrointestinal Disorders: No - GENITOURINARY/GYNECOLOGICAL Hx Genitourinary Disorders: No - PSYCHIATRIC Hx Psychophysiologic Disorder: No Hx Substance Use: No - SURGICAL HISTORY Hx Eye Surgery: Yes Other/Comment: cataracts-both eyes - ANESTHESIA Hx Anesthesia Reactions: No Hx Malignant Hyperthermia: No Meds Allergies/Adverse Reactions: Allergies Allergy/AdvReac Type Severity Reaction Status Date / Time No Known Allergies Allergy Verified 12/31/16 11:24 - Medications Medications: Current Medications Amlodipine Besylate (Norvasc) 10 mg PO DAILY [facility] Atorvastatin Calcium (Lipitor) 80 mg PO DIN [facility] Last Admin: 12/31/16 18:43 Dose: 80 mg Heparin Sodium/Sodium Chloride (Heparin 79359 Units/250ml 1/2 Normal Saline) 25 ,000 units in 250 mls @ 14.255 mls/hr IV .[id number] PRN; Protocol; 18 UNITS/KG/HR PRN Reason: ADJUST RATE PER PROTOCOL Last Titration: 12/31/16 21:32 Dose: 20 units/kg/hr, 15.839 mls/hr Cefepime HCl (Maxipime 1gm) 1 gm in 100 mls @ 100 mls/hr IVPB Q12 [facility] PRN Reason: Protocol Last Admin: 12/31/16 21:30 Dose: 100 mls/hr Insulin Human Regular (Humulin R Med) 0 units SC ACHS [facility] PRN Reason: Protocol Last Admin: 12/31/16 22:13 Dose: Not Given Losartan Potassium (Cozaar) 100 mg PO DAILY [facility] Physical Exam - Constitutional Appears: Non-toxic, No Acute Distress - Head Exam Head Exam: NORMAL INSPECTION - ENT Exam ENT Exam: Mucous Membranes Moist - Neck Exam Neck exam: Negative for: Meningismus - Respiratory Exam Respiratory Exam: Decreased Breath Sounds - Cardiovascular Exam Cardiovascular Exam: +S1, +S2 Additional comments: right anterior chest wall dialysis catheter with dressings in place, non-tender , no discharge noted - GI/Abdominal Exam GI & Abdominal Exam: Soft. absent: Tenderness Results - Vital Signs Recent Vital Signs: Last Vital Signs Temp 98.6 F 12/31/16 17:18 Pulse 70 12/31/16 22:00 Resp 18 12/31/16 17:18 BP 178/88 H 12/31/16 17:18 Pulse Ox 97 12/31/16 11:09 - Labs Result Diagrams: 01/01/17 10:15 12/31/16 08:36 Labs: Laboratory Results - last 24 hr 12/31/16 12/31/16 12/31/16 20:35 20:35 20:35 WBC RBC Hgb Hct MCV MCH MCHC RDW Plt Count MPV Retic Count APTT 38.0 H Iron 81 TIBC 216 L % Saturation 37 Lactate Dehydrogenase 848 H 12/31/16 21:35 WBC 7.7 RBC 3.78 Hgb 10.4 L D Hct 31.9 L MCV 84.4 MCH 27.5 MCHC 32.6 RDW 14.0 Plt Count 239 MPV 10.3 Retic Count 1.35 APTT Iron TIBC % Saturation Lactate Dehydrogenase Assessment & Plan - Assessment and Plan (Free Text) Plan: Assessment Right internal jugular DVT associated with dialysis catheter R/O bacteremia ESRD on HD HTN chronic anemia history of cataracts DM Plan Follow up blood cx taken yesterday; he has been given a dose of IV Vanco and is on Cefepime follow up plans of Nephrology and Heme/Onc regarding DVT will monitor clinically
[2017-01-01] MEDS ORDERED: Magnesium Hydroxide Susp 30 ml UD PO ONE (17:19)
--- NOTE | 2017-01-01 20:43 | PN ---
DATE: 01/01/2017 SUBJECTIVE: The patient is seen sitting in chair. He is awake, he is alert, is comfortable. He is nontoxic. He denies any fevers, chills. He denies any abdominal pain. He denies any nausea, vomiting. PHYSICAL EXAMINATION: GENERAL: Elderly male, sitting in chair. VITAL SIGNS: Blood pressure 140/90, heart rate 75, respiratory rate 18, temperature 98.7. HEENT: Normocephalic, atraumatic, positive pallor. NECK: Supple, no JVD. LUNGS: Bilateral equal air entry, no rales. CARDIAC: S1 and S2, regular rate and rhythm, no murmur, no rub. ABDOMEN: Soft, nondistended, nontender, bowel sounds present. EXTREMITIES: No lower extremity edema. INTAKE AND OUTPUT: 1422/not charted. LABORATORY DATA: WBC 7.5, hemoglobin 9.5, hematocrit 29, platelets 230. Sodium 137, potassium 4.0, chloride 97, CO2 of 31, BUN 37, creatinine 7.2, glucose 184, calcium 7.9, albumin 3.1, corrected calcium is 8.6. CURRENT MEDICATIONS: Losartan 100 daily, heparin, insulin, Lipitor, cefepime 1 g b.i.d., amlodipine 10. ASSESSMENT: 1. Hypercoagulable state? 2. Severe anemia, etiology other than renal insufficiency? 3. Right internal jugular deep vein thrombosis. 4. Enterococcus bacteremia, pansensitive. 5. Non-insulin dependent diabetes mellitus. 6. Hypertension. 7. End-stage renal disease. PLAN: 1. Continue heparin, as outpatient. The patient will receive Eliquis 5 mg b.i.d. 2. Followup cultures, although the patient had already received 1 g of vancomycin and 100 mg of gentamicin as outpatient before these cultures. 3. Continue cefepime 1 g daily for now. 4. The patient could be discharge on oral antibiotics, to receive Eliquis 5 mg b.i.d. for anticoagulation as outpatient. Followup hypercoagulable workup. The patient needs bone marrow biopsy, plan is for bone marrow biopsy on Wednesday as inpatient if the patient is still here or outpatient if the patient is discharged. Case discussed with Dr. Dee, case discussed with Dr. Cuadra. Arielle Hancock MD
[2017-01-01 21:51] LABS: HEMATOCRIT 26.6 % (42.0-52.0); MEAN CELL VOLUME 82.9 fl (80.0-105.0); MEAN CORPUSCULAR HEMOGLOBIN 27.4 pg (25.0-35.0); MEAN CORPUSCULAR HGB CONC 33.1 g/dl (31.0-37.0); MEAN PLATELET VOLUME 9.2 fl (7.0-11.0); WHITE BLOOD COUNT 7.8 10^3/ul (4.5-11.0)
[2017-01-02 00:28] VITALS: O2SAT 98
[2017-01-02 06:11] VITALS: TEMP 98.6
[2017-01-02 07:54] LABS: BASO # 0.05 K/mm3 (0.0-2.0); BASO % 0.6 % (0.0-3.0); EOS # 0.2 (0.0-0.7); EOS % 2.9 % (1.5-5.0); GRAN # 5.36 (1.4-6.5); GRAN % 67.1 % (50.0-68.0); HEMATOCRIT 30.2 % (42.0-52.0); LYMPH # 1.7 (1.2-3.4); LYMPH % 20.9 % (22.0-35.0); MEAN CELL VOLUME 83.9 fl (80.0-105.0); MEAN CORPUSCULAR HEMOGLOBIN 26.9 pg (25.0-35.0); MEAN CORPUSCULAR HGB CONC 32.1 g/dl (31.0-37.0); MEAN PLATELET VOLUME 9.4 fl (7.0-11.0); MONO # 0.7 (0.1-0.6); MONO % 8.5 % (1.0-6.0); RED CELL DISTRIBUTION WIDTH 14.2 % (11.5-14.5)
[2017-01-02] MEDS: Insulin Reg-MEDIUM-Coverage SC SCH (08:06)
[2017-01-02 08:09] LABS: ALB/GLOB RATIO 0.9 (1.1-1.8); BILIRUBIN,TOTAL 0.6 mg/dL (0.2-1.3); CALCIUM 8.7 mg/dL (8.4-10.5); TOTAL PROTEIN 6.5 g/dL (5.8-8.3)
--- NOTE | 2017-01-02 09:19 | PN ---
DATE: LOCATION: The patient is currently seen on . SUBJECTIVE: He is lying comfortable in bed. He remains on IV heparin. He is asking me why he can be discharged home. He did have dialysis yesterday and is scheduled for dialysis on Wednesday in the outpatient unit. MEDICATIONS: Medication list reviewed. The patient is on Cozaar, heparin drip, sliding scale insulin, Lipitor, Maxipime and Norvasc. OBJECTIVE/PHYSICAL EXAMINATION: INTAKE/OUTPUT: Intake of 1280 and output 900 plus dialysis. VITAL SIGNS: Blood pressure ranging from 140 to 160 systolic and diastolic 70 to 80. Pulse is 62, temperature is 98.6, and respiratory rate is 20. Pulse oximetry is 98%. HEENT: Exam shows him to be normocephalic and atraumatic. Conjunctivae are pale. Sclerae are nonicteric. NECK: Supple. No neck vein distention. CHEST: Clear to auscultation and percussion. No rales and no rhonchi or wheezing. CARDIOVASCULAR: S1 and S2 are normal. No murmurs, rubs or gallops. GASTROINTESTINAL: Abdomen is soft. Nondistended and nontender. Bowel sounds are normal. EXTREMITIES: No lower extremity edema. Positive right IJ PermCath. LABORATORY DATA AND IMAGING STUDIES:. CBC: White blood cell count of 8.0 this morning with hemoglobin of 9.7, and platelet count is 254,000. Coag showed a PTT of 66.3 today. Chemistries: Electrolytes are normal. BUN of 35 with a creatinine of 7.0. Calcium was 8.7. No phosphorus available for comment. Hypercoagulability workup in progress. The patient is status post transfusion 2 units packed red blood cells. Microbiology; blood cultures are negative at 24 hours. ASSESSMENT: 1. End stage renal disease. The patient will continue three times a week dialysis. His dialysis schedule in the outpatient unit will be altered because of the holiday later this week. 2. History of anemia with possible hypercoagulable state. The patient had been seen by Hematology, workup has been sent and the patient will likely need a bone marrow biopsy this will be set up as an outpatient. 3. Status post right internal jugular deep vein thrombosis . The patient will be transitioned over from heparin to Eliquis, he may start Eliquis upon discharge, he has the prescription. 4. Status post enterococcal bacteremia. The patient had received antibiotics in the outpatient unit, vancomycin and gentamicin. He is currently on cefepime. He may continue outpatient antibiotics upon discharge. 5. History of noninsulin-dependent diabetes mellitus controlled. 6. History of hypertension, controlled on present medication and on dialysis. 7. History of secondary hyperparathyroidism. No phosphorus levels available for comment. The patient had an elevated PTH and a low vitamin D level along with an elevated phosphorus on previous admission. At present, he is taking no binders, phosphorus levels will be checked in the outpatient setting. PLAN: 1. Transition over from heparin to Eliquis 5 mg twice a day. 2. Follow up cultures. The patient may continue cefepime as long as he is an inpatient. 3. Discharge as per Dr. Dee with followup with Dr. Cuadra for follow up of hypercoagulable workup and perhaps bone marrow biopsy to be set up as an outpatient. Uri Beavers MD
[2017-01-02] MEDS: Cefepime 1gm in NS 100ml 1 GM/100 ML BAG IVPB SCH (09:51)
[2017-01-02 09:52] VITALS: BP 168/88
[2017-01-02 10:38] VITALS: PULSE 64; RESP 18
--- NOTE | 2017-01-02 11:17 | PN ---
SUBJECTIVE: The patient was seen and examined at bedside on the [facility]. No acute events overnight. He remains afebrile and hemodynamically stable. This morning the patient states he feels well and offers no complaints. He reports that he is looking forward to going home. PHYSICAL EXAMINATION VITAL SIGNS: Temperature 98.6, Pulse 62, blood pressure is 160/80, respiratory rate is 20, and oxygen saturation is 98% on room air. HEENT: PERRLA. EOMI. No sclera icterus. Mild conjunctival pallor is noted. NECK: No JVD. LUNGS: Decreased breath sounds at the bases. CARDIOVASCULAR: Regular rate and rhythm. Normal S1 and S2. ABDOMEN: Normoactive bowel sounds. Soft, nontender, and nondistended. EXTREMITIES: Trace lower extremity edema bilaterally. NEUROLOGIC: Awake, alert, and oriented x3. No focal motor deficits. LABORATORY DATA: WBC of 8, hemoglobin of 9.7, hematocrit of 30, and platelets of 254. Chemistry reviewed and unremarkable with the exception of BUN of 35 and creatinine of 7. Blood cultures with no growth to date. ASSESSMENT: The patient is a 66 year old man with ESRD newly started on HD (), anemia of chronic disease, sickle cell trait, hypertension, hyperlipidemia, NIDDM and nonobstructive CAD who presented from his dialysis center for evaluation of right IJ DVT at his dialysis access and symptomatic anemia who is now s/p transfusion of 2 units PRBC's and pending discharge to home. PLAN: 1. Right IJ DVT. Input from Dr. Norman Vo noted and appreciated and input from Dr. Cuadra (Heme/Onc) noted. A hypercoagulable workup has been sent and is pending. The patient has a functioning dialysis access catheter and has been started on Eliquis for his DVT. 2. Symptomatic anemia s/p transfusion of 2 units of PRBCs. Labs demonstrated stable hemoglobin of 9.7 this morning. Arrangements will be made for followup with Dr. Cuadra of Heme/Onc on an outpatient basis for possible bone marrow biopsy and further evaluation of his anemia. 3. ESRD on HD. Input Dr. Hancock noted and appreciated. The patient to continue with dialysis on schedule. 4. Hypertension. Continue Norvasc 10 mg p.o. daily and Losartan 100 mg p.o. daily. 5. Hyperlipidemia. Continue Lipitor 80 mg p.o. daily. 6. CAD, non-obstructive. Continue medical management consisting of Lipitor 80 mg p.o. daily and Aspirin 81 mg p.o. daily. 7. NIDDM. Continue medium dose insulin sliding scale. 8. BPH. 9. Prophylaxis. GI prophylaxis not indicated as the patient is eating. DVT prophylaxis not indicated as the patient is on therapeutic dose of Eliquis. CODE STATUS: Full code. Fredrick Dee MD [facility] # [id number] MTDD
--- NOTE | 2017-01-05 00:18 | DS ---
ADMITTING DIAGNOSES: Right internal jugular DVT, symptomatic anemia. DISCHARGE DIAGNOSES: Right internal jugular DVT, symptomatic anemia. SECONDARY DIAGNOSES: CAD (nonobstructive), hypertension, hyperlipidemia, non-insulin dependent diabetes mellitus, sickle cell trait and BPH. CONSULTATIONS: Dr. Cuadra (Heme/Onc), Dr. Hancock (Nephrology), Dr. Vazquez (Infectious Disease) and Dr. Vo (Interventional Radiology). HISTORY OF PRESENT ILLNESS: The patient is a 66 year old man with a past medical history of hypertension, hyperlipidemia, non-insulin dependent diabetes mellitus and ESRD newly started on HD () who presented to [facility] for evaluation of right IJ DVT noted at his dialysis center. The patient presented to the ED and was noted to be afebrile and hemodynamically stable. Initial laboratory studies demonstrated a Hb pf 6.7 (down from 9.7 12/08/2016). He was type and cross-matched for 2 units of PRBCs and subsequently admitted to the telemetry [facility] for continued management of right IJ DVT and symptomatic anemia. HOSPITAL COURSE: Upon transferred to the telemetry [facility] he was transfused 2 units of PRBCs. He was evaluated by Dr. Cuadra of Heme/Onc and a hypercoagulable workup was ordered. Arrangements were also made for continued outpatient followup to pursue a bone marrow biopsy as continued workup of his anemia. He was also evaluated by Dr. Vo of IR to manipulate the right IJ dialysis access catheter and restore it to a functional status. After initial treatment with a heparin drip he was transitioned to Eliquis. The remainder of his hospital stay was unremarkable, follow-up labs demonstrated a stable H/H and by hospital day #2 he was deemed stable for discharge to home. CONDITION: Fair, improved. DISPOSITION: Home. DISCHARGE MEDICATIONS: Norvasc 10 mg p.o. daily, Losartan 100 mg p.o. daily, Lipitor 80 mg p.o. daily, Aspirin 81 mg p.o. daily and Eliquis 5 mg p.o. b.i.d. DISCHARGE INSTRUCTIONS: The patient was advised that if he has any recurrence of his symptoms or any development of dyspnea, fatigue, near-syncope or syncope to present to his PMD or to the nearest ED immediately. FOLLOWUP: The patient is to follow up with his PMD within 1 week of discharge. The patient is to follow up with Dr. Hancock as scheduled. The patient is to follow up with Dr. Cuadra as scheduled. Fredrick Dee MD [facility]
== END 2017-01-02 11:05 | disposition home or self-care (01) | DRG 314 ==
LOC: ED 07:18 → ERH 10:53 → 3RSO 12:30
PROVIDERS: ADMIT Student in an Organized Health Care Education/Training Program; ATTEND Student in an Organized Health Care Education/Training Program
DX: T82.868A Thrombosis due to vascular prosthetic devices, implants and grafts, initial encounter (principal); N18.6 End stage renal disease; D68.59 Other primary thrombophilia; C90.00 Multiple myeloma not having achieved remission; I82.C11 Acute embolism and thrombosis of right internal jugular vein; R78.81 Bacteremia; I12.0 Hypertensive chronic kidney disease with stage 5 chronic kidney disease or end stage renal disease; N25.81 Secondary hyperparathyroidism of renal origin; B95.2 Enterococcus as the cause of diseases classified elsewhere; E11.22 Type 2 diabetes mellitus with diabetic chronic kidney disease; Z99.2 Dependence on renal dialysis; D63.8 Anemia in other chronic diseases classified elsewhere; D57.3 Sickle-cell trait; N40.0 Benign prostatic hyperplasia without lower urinary tract symptoms; E78.5 Hyperlipidemia, unspecified; K59.00 Constipation, unspecified; Z87.891 Personal history of nicotine dependence; I25.119 Atherosclerotic heart disease of native coronary artery with unspecified angina pectoris; H26.9 Unspecified cataract

== ENCOUNTER 2017-03-03 11:44 | Day surgery (SDC) | payer BC, MEDICARE ==
[2017-02-26 11:49] VITALS: BMI 23.7
[2017-03-03 12:49] LABS: BASO # 0.04 K/mm3 (0.0-2.0); BASO % 0.9 % (0.0-3.0); EOS # 0.1 (0.0-0.7); EOS % 1.7 % (1.5-5.0); GRAN # 2.87 (1.4-6.5); GRAN % 61.6 % (50.0-68.0); HEMOGLOBIN 11.1 g/dL (14.0-18.0); LYMPH # 1.2 (1.2-3.4); LYMPH % 25.5 % (22.0-35.0); MEAN CELL VOLUME 83.7 fl (80.0-105.0); MEAN CORPUSCULAR HEMOGLOBIN 27.4 pg (25.0-35.0); MEAN CORPUSCULAR HGB CONC 32.7 g/dl (31.0-37.0); MEAN PLATELET VOLUME 9.9 fl (7.0-11.0); MONO # 0.5 (0.1-0.6); MONO % 10.3 % (1.0-6.0); RBC 4.05 10^6/uL (3.5-6.1); RED CELL DISTRIBUTION WIDTH 14.3 % (11.5-14.5); WHITE BLOOD COUNT 4.7 10^3/ul (4.5-11.0)
[2017-03-03 13:08] LABS: INR 0.96 (0.93-1.08); PARTIAL THROMBOPLASTIN TIME 26.9 Seconds (25.1-36.5)
[2017-03-03 13:28] LABS: CALCIUM 8.6 mg/dL (8.4-10.5)
[2017-03-03] MEDS ORDERED: Midazolam 2 MG/2 ML VIAL ONE (14:25)
[2017-03-03] MEDS ORDERED: Oxycodone/Acetaminophen 5/325 mg Tab PO PRN (15:19)
[2017-03-03] MEDS ORDERED: Sodium Chloride 0.45% 1,000 ML IV SCH (15:30)
[2017-03-03 16:48] VITALS: RESP 16
[2017-03-03 17:07] VITALS: BP 144/78; PULSE 60; TEMP 98.7; O2SAT 100
--- NOTE | 2017-03-03 19:54 | CT ---
PROCEDURE: CT guided L3 vertebral body biopsy. HISTORY: Multifocal mixed lytic and sclerotic skeletal lesions. Positive PET scan. End-stage renal disease. Evaluate for malignancy. PHYSICIAN(S): Norman Vo MD. TECHNIQUE: The relative risks and indications of the procedure were explained to the patient and consent obtained. The patient was placed prone on the CT scanner and preliminary images through the lumbar spine and pelvis obtained. Conscious sedation and monitoring were provided throughout the procedure by a nurse. Multiple areas of mixed lytic and sclerotic changes are seen in the lumbar spine and pelvis. The L3 vertebral body was selected for biopsy.. A left posterior approach was selected and the area prepped and draped in the usual sterile fashion. 1% Xylocaine was used to anesthetize the skin and soft tissues. A 11 gauge on control bone biopsy needle was advanced to the lateral L3 vertebral body. A long core biopsy was obtained of the L3 vertebral body. The patient tolerated the procedure well. IMPRESSION: 1. CT-guided L3 vertebral body biopsy as described above.
== END 2017-03-03 17:30 | disposition home or self-care (01) ==
LOC: SDS 11:44
PROVIDERS: ATTEND Radiology Vascular & Interventional Radiology
DX: M48.8X6 Other specified spondylopathies, lumbar region (principal); N18.6 End stage renal disease; I12.0 Hypertensive chronic kidney disease with stage 5 chronic kidney disease or end stage renal disease; E11.22 Type 2 diabetes mellitus with diabetic chronic kidney disease; Z79.84 Long term (current) use of oral hypoglycemic drugs
CPT/HCPCS: 20225; 36415; 77012; 80048; 85025; 85610; 85730; 88305; J2250; J2405; J3010; J7030